=== PATIENT | male | born 1960 | race Caucasian/White ===

== ENCOUNTER → 2016-09-28 | Outpatient (REF) | payer MEDICAID, MEDICARE ==
[~2016-09-28] MED LIST: /FAMO2TA PO; /METO25TAB PO; /PANT40TA PO; ASPI81TAEC PO; BABY81CH OR; BREO1INH3 IN; CARB100C PO; CARB20TA PO; CELE20TA PO; CITA20TA2 PO; CLEO150C PO; CLEO300C2 PO; CLOP75TA2 PO; DEPA500T OR; DEPA500T2 OR; DEPAKOTE; DILA100C PO; HYDR50IN3 PO; HYDRO50TAB PO; IBUP80TA PO; KEPP1TAB2 PO; KEPP250T5 PO; LEVO50TA5 PO; LISI5TAB PO; LOPR1TAB6 PO; METF500T PO; MUPI2OI TOP; NEUR300C PO; PERC5TAB PO; PRAV40TA PO; PRAV40TA2 PO; PRIN10TA PO; PROA1AER IN; PROT1TAB2 PO; QUET30XR OR; QUET400T PO; QUET5TAB PO; SERO1TAB2 PO; SERO200T OR; SERO200T PO; SERO400T PO; SYMB80INH INH; SYNT50TA PO; TIOT18INH INH; TYLE325T5 PO; ZOCO40TA; ZOLO50TA PO; [UNRECOGNIZED DRUG - OTHER]
== END ==
LOC: M LABDRAWC 12:08
PROVIDERS: ATTEND Nurse Practitioner Psychiatric/Mental Health
DX: E55.9 Vitamin D deficiency, unspecified (principal)

== ENCOUNTER → 2016-10-17 | Outpatient (REF) | payer MEDICAID, MEDICARE ==
[~2016-10-17] MED LIST changes: +ASCO25TA PO; -BREO1INH3 IN; +BREO1INH3 INH; +CARB1TAB20 PO; +CYMB1CAP4 PO; +FAMO1TAB11 PO; +GABA-283 PO; +GABA600T PO; +INVE234I IM; +KEPP10002 PO; +LAMI25TA PO; +MELO15TA4 PO; +METF500T13 PO; +METO25TA4 PO; +PALI1TAB2 PO; -PROA1AER IN; +PROAAER10 IN; +QUET1TAB10 PO; +QUET1TAB8 PO; +SERT-138 PO; +SERT-155 PO; +ZONE1CAP PO
[2016-10-17 12:51] LABS: ALBUMIN/GLOBULIN RATIO 1.33 (1.00-1.93); ALKALINE PHOSPHATASE 91 U/L (45-117); ALT/SGPT 25 U/L (12-78); AST/SGOT 12 U/L (15-37); BILIRUBIN,DIRECT < 0.1 MG/DL (0.0-0.2); BILIRUBIN,TOTAL 0.2 MG/DL (0.2-1.0)
== END ==
LOC: M LABDRAWC 11:15
PROVIDERS: ATTEND Family Medicine
DX: R74.8 Abnormal levels of other serum enzymes (principal)

== ENCOUNTER 2017-01-21 10:15 | Inpatient (IN) | payer MEDICARE, OTHER ==
[~2017-01-21] VITALS: Ht 193 cm; Wt 101.0 kg
[~2017-01-21 10:15] MED LIST changes: -ASCO25TA PO; -CARB1TAB20 PO; -CYMB1CAP4 PO; -FAMO1TAB11 PO; -GABA-283 PO; -GABA600T PO; -INVE234I IM; -KEPP10002 PO; -LAMI25TA PO; -MELO15TA4 PO; -METF500T13 PO; -METO25TA4 PO; -PALI1TAB2 PO; -QUET1TAB10 PO; -QUET1TAB8 PO; -SERT-138 PO; -SERT-155 PO; -ZONE1CAP PO
[2017-01-21 11:00] LABS: MEAN CORPUSCULAR HEMOGLOBIN 33.1 pg (27.0-33.0); MEAN CORPUSCULAR HGB CONC 34.3 g/dl (32.0-36.5); MEAN CORPUSCULAR VOLUME 96.6 fl (80.0-96.0); RED CELL DISTRIBUTION WIDTH 12.1 % (11.5-14.5); WHITE BLOOD COUNT 7.2 K/mm3 (4.0-10.0)
[2017-01-21] MEDS ORDERED: MELO15TA4 PO (11:22)
[2017-01-21] MEDS ORDERED: QUET1TAB10 PO (11:22)
[2017-01-21] MEDS ORDERED: METF500T13 PO (11:22)
[2017-01-21] MEDS ORDERED: FAMO1TAB11 PO (11:22)
[2017-01-21] MEDS ORDERED: ASCO25TA PO (11:22)
[2017-01-21] MEDS ORDERED: SERT-155 PO (11:22)
[2017-01-21] MEDS ORDERED: QUET1TAB8 PO (11:22)
[2017-01-21] MEDS ORDERED: GABA-283 PO (11:22)
[2017-01-21] MEDS ORDERED: CARB20TA PO (11:22)
[2017-01-21 11:36] LABS: ALBUMIN 3.9 GM/DL (3.2-5.2); ALKALINE PHOSPHATASE 91 U/L (45-117); ALT/SGPT 19 U/L (12-78); ANION GAP 6 MEQ/L (8-16); AST/SGOT 10 U/L (15-37); BILIRUBIN,DIRECT 0.1 MG/DL (0.0-0.2); BILIRUBIN,TOTAL 0.3 MG/DL (0.2-1.0); BLOOD UREA NITROGEN 12 MG/DL (7-18); CALCIUM LEVEL 8.5 MG/DL (8.5-10.1); CARBON DIOXIDE LEVEL 28 MEQ/L (21-32); CHLORIDE LEVEL 106 MEQ/L (98-107); CREATININE FOR GFR 0.84 MG/DL (0.70-1.30); GLOMERULAR FILTRATION RATE > 60.0 (>56); GLUCOSE, FASTING 97 MG/DL (70-105); POTASSIUM SERUM 3.9 MEQ/L (3.5-5.1); SODIUM LEVEL 140 MEQ/L (136-145); TOTAL PROTEIN 6.9 GM/DL (6.4-8.2)
[2017-01-21 13:42] LABS: METHADONE URINE NEGATIVE (NEGATIVE)
[2017-01-21 15:42] VITALS: BP 161/77
[2017-01-21] MEDS ORDERED: SERT-138 PO (15:45)
[2017-01-21] MEDS ORDERED: GABA600T PO (15:45)
[2017-01-21] MEDS ORDERED: METO25TA4 PO (15:45)
[2017-01-21] MEDS ORDERED: KEPP10002 PO (15:45)
[2017-01-21] MEDS ORDERED: ACETAMINOPHEN TAB 650MG DOSE (2X325MG) PO PRN (17:15)
[2017-01-21] MEDS ORDERED: MOM 30ML SUSPENSION UDC PO PRN (17:15)
[2017-01-21] MEDS: NICOTINE 21MG/24HR 1 EA TRANSDERMAL TD SCH (17:48)
[2017-01-21] MEDS: metFORMIN (GLUCOPHAGE) 500 MG TAB PO SCH (18:15)
[2017-01-21] MEDS: QUEtiapine FUMARATE 100 MG TAB PO SCH (23:23)
[2017-01-21] MEDS: GABAPENTIN 300 MG CAP PO SCH (23:23)
[2017-01-21] MEDS: levETIRAcetam 250MG TABLET (KEPPRA) PO SCH (23:23)
[2017-01-21] MEDS: FAMOTIDINE 20 MG TAB PO SCH (23:23)
[2017-01-21] MEDS: METOPROLOL TART 25 MG TABLET PO SCH (23:24)
[2017-01-22] MEDS: LEVOTHYROXINE 50MCG TABLET (0.05MG) PO SCH (06:03)
[2017-01-22] MEDS ORDERED: IPRATROPIUM 0.5MG/ALBUTEROL 2.5MG INH SOL UD 3ML (DUONEB)(J7620) NEB SCH (08:00)
[2017-01-22] MEDS: QUEtiapine FUMARATE 100 MG TAB PO SCH ×3 (08:35→21:00)
[2017-01-22] MEDS: GABAPENTIN 300 MG CAP PO SCH ×3 (08:35→21:00)
[2017-01-22] MEDS: ASPIRIN 81 MG ENTERIC TAB PO SCH (08:35)
[2017-01-22] MEDS: NICOTINE 21MG/24HR 1 EA TRANSDERMAL TD SCH (08:35)
[2017-01-22] MEDS: carBAMazepine 100 MG *1/2* TAB PO SCH (08:35)
[2017-01-22] MEDS: PANTOPRAZOLE 40MG TAB (PROTONIX) PO SCH (08:35)
[2017-01-22] MEDS: metFORMIN (GLUCOPHAGE) 500 MG TAB PO SCH ×2 (08:36→17:02)
[2017-01-22] MEDS: LISINOPRIL 10 MG TAB PO SCH (08:36)
[2017-01-22] MEDS: levETIRAcetam 250MG TABLET (KEPPRA) PO SCH ×2 (08:36→21:00)
[2017-01-22] MEDS: METOPROLOL TART 25 MG TABLET PO SCH ×2 (08:36→21:00)
[2017-01-22] MEDS: MELOXICAM (MOBIC) 7.5 MG TAB PO SCH (08:37)
[2017-01-22] MEDS: PRAVASTATIN 20 MG TAB PO SCH (08:37)
[2017-01-22] MEDS: FAMOTIDINE 20 MG TAB PO SCH ×2 (08:37→21:00)
[2017-01-22] MEDS: ASCORBIC ACID 500 MG TAB PO SCH (08:37)
[2017-01-22] MEDS ORDERED: SERTRALINE 100 MG TAB PO SCH (09:00)
--- NOTE | 2017-01-22 09:21 | HPEPDOC ---
Medical History and Physical Date of Admission Jan 21, 2017 at 14:45 History and Physical PCP: [facility] ATTENDING: Dr. Jose Fernando HPI: 56yoM admitted to [facility] for schizoaffective disorder, being medically examined today. Patient states he has had chronic low back pain. He states he was referred for an MRI of his lumbosacral spine however he did not make it to the appointment. Also referred to pain management however had not been seen there yet. He states he has been on and off his medications for the past few weeks. Patient states he has had some cough productive of yellow sputum. Sometimes his chest feels tight. He has not been using his inhalers recently. Denies any fevers, chills, weakness, fatigue, CARR, CP, SOB, palpitations, abdominal pain, N/V/D or changes in bowel or bladder habits. PMHx: Schizophrenia/schizoaffective disorder History of psychosis Anxiety Depression COPD Hypertension NIDDM GERD Seizure disorder Hypothyroid Dyslipidemia Peripheral neuropathy History of unsteady gait. Uses a cane for ambulation. Chronic low back pain Chronic pain Vitamin D deficiency PSHX: Bilateral foot surgery SOCHX: Resides in: [facility], lives alone. Has a home health aide. 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 ROS: As noted in HPI, otherwise 11pt ROS of systems reviewed and unremarkable. PE: GEN: 56yoM, appears older than stated age. Well-nourished, well developed. No acute distress. Alert and oriented x 3. Agitated during exam. HEENT: Normocephalic, atraumatic. Pupils are equal, round, and reactive to light. Extraocular movements are intact. No nystagmus appreciated. Sclera are nonicteric. Conjunctiva without injection. Nose midline. Nasal turbinates without bogginess. EACs both patent BL. TMs both visualized and castro with good cone of light, no bulging or erythema. No facial asymmetry. Moist mucous membranes. Patient is edentulous. Pharynx pink and moist, no cobblestoning. Neck supple, trachea midline. No lymphadenopathy or thyromegaly appreciated. CHEST: Regular rate and rhythm, +S1, +S2 LUNGS: Decreased breath sounds bilaterally. Expiratory wheezes noted, no rales, or rhonchi. Patient is speaking in full sentences. No accessory muscle use. ABD: Round, soft, non-tender, non-distended. +Bowel sounds throughout. No rebound or guarding. No costovertebral angle tenderness. EXT: Pulses 2+ bilaterally dorsalis pedis and radial. No lower extremity edema appreciated. SKIN: [place], dry, warm. Capillary refill <2sec. No rashes. NEURO: Alert and oriented x 3. Cranial nerves III-XII are intact. No focal deficits appreciated. EKG: pending A&P: 56yoM admitted to [facility] for schizoaffective disorder 1. Psych. Plan per Psychiatry. Obtain baseline EKG to assure the safety of psychiatric medications as they can prolong the QT interval. 2. Nicotine dependence. Patch available. 3. COPD. Resume patient's outpatient inhaler regimen. Duo nebs as needed. Reinforced compliance with medications. Update CBC/CMP. Check PA and left lateral chest x-ray. Oxygen saturation is noted to be 94% on room air. 4. Follow up with PCP on discharge. Request copy of most recent note from last appointment with PCP. 5. NIDDM. Continue consistent carbohydrate diet. Metformin 500 mg by mouth twice a day. Fingerstick blood sugar twice a day. Update hemoglobin A1c. Continue aspirin 81 mg daily. 6. Dyslipidemia. Continue statin. Update fasting lipids. 7. Vitamin D deficiency. Update vitamin D level. 8. GERD. Continue Protonix 40 mg daily. Continue Pepcid 20 mg by mouth twice a day. 9. Hypertension. Continue lisinopril 10 mg daily. Continue metoprolol 25 mg by mouth twice a day with hold parameters. 10. Seizure disorder. Continue Keppra 1000 mg by mouth twice a day, Tegretol 300 mg by mouth daily. Update Tegretol level. 11. Hypothyroidism. Continue Synthroid 50 g daily. TSH is noted within normal limits. 12. Chronic low back pain/peripheral neuropathy/chronic pain. Request x-ray of lumbosacral spine. Request pain management consultation. Continue gabapentin 600 mg 3 times a day, meloxicam 15 mg by mouth daily. 13. Unsteady gait. PT evaluation and treat. Pt uses cane for ambulation. 14. Staff member Valdemar present throughout exam. Vital Signs Vital Signs Date Time Temp Pulse Resp B/P (MAP) Pulse Ox O2 Delivery O2 Flow Rate FiO2 01/22/17 08:36 89 141/70 01/21/17 15:42 98.3 18 94 Room Air Laboratory Data Labs 24H Laboratory Tests 2 01/21/17 10:49: Anion Gap 6L, Glomerular Filtration Rate > 60.0, Calcium Level 8.5, Aspartate Amino Transf (AST/SGOT) 10L, Alanine Aminotransferase (ALT/SGPT) 19, Alkaline Phosphatase 91, Total Bilirubin 0.3, Direct Bilirubin 0.1, Total Protein 6.9, Albumin 3.9, Albumin/Globulin Ratio 1.30, Thyroid Stimulating Hormone (TSH) 0.584, Salicylates Level 4.4L, Acetaminophen Level < 2.0L, Ethyl Alcohol Level < 0.003 01/21/17 12:15: Urine Amphetamines Screen NEGATIVE, Urine Benzodiazepines Screen NEGATIVE, Urine Opiates Screen NEGATIVE, Urine Methadone Screen NEGATIVE, Urine Barbiturates Screen NEGATIVE, Urine Phencyclidine Screen NEGATIVE, Urine Cocaine Metabolite Screen NEGATIVE, Urine Cannabinoids Screen NEGATIVE 01/21/17 18:14: Bedside Glucose (Misc Panel) 119H CBC/BMP Laboratory Tests 01/21/17 10:49 Red Blood Count 4.48, Mean Corpuscular Volume 96.6 H, Mean Corpuscular Hemoglobin 33.1 H, Mean Corpuscular Hemoglobin Concent 34.3, Red Cell Distribution Width 12.1 Home Medications Scheduled Ascorbic Acid (Vitamin C) 250 Mg Tab, 1,000 MG PO DAILY Aspirin (Aspirin EC) 81 Mg Tabec, 81 MG PO DAILY for Cardiac prevention Carbamazepine (TEGretol) 200 Mg Tab, 300 MG PO DAILY Famotidine (Famotidine) 20 Mg Tab, 20 MG PO BID Fluticasone/Vilanterol (Breo Ellipta 200-25 Mcg/INH) 1 Inh Inh, 1 INH INH DAILY for Gabapentin (Gabapentin) 600 Mg Tab, 600 MG PO TID Levetiracetam (Keppra) 1,000 Mg Tab, 1,000 MG PO BID Levothyroxine Sodium (Synthroid) 50 Mcg Tab, 50 MCG PO DAILY for hypothyroid Lisinopril (Prinivil) 10 Mg Tab, 10 MG PO DAILY for Hypertention Meloxicam (Meloxicam) 15 Mg Tab, 15 MG PO DAILY Metformin Hydrochloride (Metformin HCl) 500 Mg Tab, 500 MG PO BID Metoprolol Tartrate (Metoprolol Tartrate) 25 Mg Tab, 25 MG PO BID Pantoprazole Sodium Sesquihydr (Protonix) 40 Mg Tab, 40 MG PO DAILY for GERD Pravastatin Sodium (Pravachol) 40 Mg Tab, 40 MG PO DAILY for hyperlipidemia Quetiapine Fumerate (Quetiapine Fumarate) 300 Mg Tab, 300 MG PO QHS Quetiapine Fumerate (Quetiapine Fumarate) 100 Mg Tab, 100 MG PO BID Sertraline HCl (Sertraline HCl) 100 Mg Tab, 200 MG PO DAILY Tiotropium Simms Monohydrate (Spiriva Handihaler) 5 Inhalation/Inhaler Powd, 1 INHALATION INH DAILY for Scheduled PRN Albuterol Sulfate (Proair Hfa) 108 Mcg/Act Aer, 108 MCG IN Q4HP PRN for SHORTNESS OF BREATH Allergies Coded Allergies: Penicillins (Verified Allergy, Mild, 08/12/12) Madeline Miller Jan 22, 2017 09:21
[2017-01-22] MEDS ORDERED: IPRATROPIUM 0.5MG/ALBUTEROL 2.5MG INH SOL UD 3ML (DUONEB)(J7620) NEB PRN (09:30)
[2017-01-22] MEDS ORDERED: ALBUTEROL SULFATE 2.5 MG/0.5 ML INH NEB SOLN INH PRN (09:30)
[2017-01-22] MEDS: lamoTRIgine 25 MG TAB PO SCH (10:37)
[2017-01-22] MEDS: DULoxetine 20 MG CAP (CYMBALTA) PO SCH (10:37)
[2017-01-22] MEDS: PALIPERIDONE 6 MG ER TAB (INVEGA) PO SCH (10:37)
[2017-01-22] MEDS: ADVAIR HFA 230/21MCG INHALER INH SCH ×2 (10:53→21:00)
[2017-01-22] MEDS: TIOTROPIUM INHALER/CAPSULE (SPIRIVA) INH SCH (10:55)
[2017-01-22] MEDS: ALBUTEROL SULFATE 2.5 MG/0.5 ML INH NEB SOLN INH SCH ×3 (10:59→20:00)
[2017-01-22 11:18] LABS: BASO % 0.5 % (0.0-1.0); EOS # 0.4 K/mm3 (0.0-0.50); EOS % 4.2 % (0.0-3.0); LARGE UNSTAINED CELL # 0.1 K/mm3 (0.0-0.4); LARGE UNSTAINED CELL % 1.2 % (0.0-4.0); LYMPH # 1.6 K/mm3 (1.5-4.5); LYMPH % 17.6 % (24.0-44.0); MEAN CORPUSCULAR HEMOGLOBIN 31.8 pg (27.0-33.0); MEAN CORPUSCULAR HGB CONC 32.9 g/dl (32.0-36.5); MEAN CORPUSCULAR VOLUME 96.8 fl (80.0-96.0); MONO # 0.6 K/mm3 (0.0-0.8); MONO % 6.7 % (0.0-5.0); NEUTROPHILS # 5.9 K/mm3 (1.8-7.7); NEUTROPHILS % 69.8 % (36.0-66.0); PLATELET COUNT, AUTOMATED 253 k/mm3 (150-450); RED CELL DISTRIBUTION WIDTH 12.2 % (11.5-14.5); WHITE BLOOD COUNT 8.4 K/mm3 (4.0-10.0)
[2017-01-22 11:57] LABS: ALBUMIN 3.5 GM/DL (3.2-5.2); ALKALINE PHOSPHATASE 82 U/L (45-117); ALT/SGPT 19 U/L (12-78); ANION GAP 6 MEQ/L (8-16); AST/SGOT 9 U/L (15-37); BILIRUBIN,TOTAL 0.3 MG/DL (0.2-1.0); BLOOD UREA NITROGEN 14 MG/DL (7-18); CARBAMAZEPINE (TEGRETOL) LEVEL 2.9 UG/ML (4.0-10.0); CARBON DIOXIDE LEVEL 30 MEQ/L (21-32); CHLORIDE LEVEL 109 MEQ/L (98-107); CREATININE FOR GFR 0.86 MG/DL (0.70-1.30); GLOMERULAR FILTRATION RATE > 60.0 (>56); GLUCOSE, FASTING 123 MG/DL (70-105); POTASSIUM SERUM 4.1 MEQ/L (3.5-5.1); SODIUM LEVEL 145 MEQ/L (136-145)
--- NOTE | 2017-01-22 16:46 | REP ---
Lumbar spine series: Two views: History: Low back pain. Findings: AP and lateral views are presented as requested. Vascular calcification is seen in a normal caliber aorta. Lumbar vertebral body heights are preserved. There is mild disc space narrowing at L3-4 and L4-5. Early discogenic spurring is seen at these two levels as well as at T12-L1 and L1-2. Pedicles and posterior elements are intact. There is no evidence of spondylolysis or spondylolisthesis. Sacrum and SI joints are intact. Impression: Mild degenerative disc disease at several levels. Vascular calcification. Otherwise negative limited lumbar spine series. Signed by Shakir Lassiter MD 01/22/2017 05:25 P
--- NOTE | 2017-01-22 16:47 | REP ---
Chest x-ray: Two views: History: Cough. Comparison chest x-ray: 08/09/2014. Findings: The lungs are symmetrically aerated. There is some mild linear fibrosis in the left base. Lung yip are otherwise clear. Pleural angles are sharp. Cardiomediastinal silhouette is unremarkable. Pulmonary vasculature is not increased. No significant bony abnormality is seen. Impression: Linear fibrosis left base. Otherwise no acute disease. Signed by Shakir Lassiter MD 01/22/2017 05:25 P
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
[2017-01-22 18:00] VITALS: BP 110/75
[2017-01-23] MEDS: LEVOTHYROXINE 50MCG TABLET (0.05MG) PO SCH (06:04)
[2017-01-23 06:48] VITALS: BP 137/76
[2017-01-23] MEDS: ALBUTEROL SULFATE 2.5 MG/0.5 ML INH NEB SOLN INH SCH ×4 (07:31→18:57)
[2017-01-23] MEDS: VITAMIN D 1,000 INTERNATIONAL UNITS TABLET PO SCH (09:38)
[2017-01-23] MEDS: LISINOPRIL 10 MG TAB PO SCH (09:39)
[2017-01-23] MEDS: PRAVASTATIN 20 MG TAB PO SCH (09:39)
[2017-01-23] MEDS: PALIPERIDONE 6 MG ER TAB (INVEGA) PO SCH (09:39)
[2017-01-23] MEDS: FAMOTIDINE 20 MG TAB PO SCH ×2 (09:39→21:19)
[2017-01-23] MEDS: GABAPENTIN 300 MG CAP PO SCH ×3 (09:39→21:19)
[2017-01-23] MEDS: ASPIRIN 81 MG ENTERIC TAB PO SCH (09:39)
[2017-01-23] MEDS: NICOTINE 21MG/24HR 1 EA TRANSDERMAL TD SCH (09:40)
[2017-01-23] MEDS: PANTOPRAZOLE 40MG TAB (PROTONIX) PO SCH (09:40)
[2017-01-23] MEDS: QUEtiapine FUMARATE 100 MG TAB PO SCH ×3 (09:40→21:19)
[2017-01-23] MEDS: MELOXICAM (MOBIC) 7.5 MG TAB PO SCH (09:40)
[2017-01-23] MEDS: carBAMazepine 100 MG *1/2* TAB PO SCH (09:40)
[2017-01-23] MEDS: levETIRAcetam 250MG TABLET (KEPPRA) PO SCH ×2 (09:41→21:18)
[2017-01-23] MEDS: metFORMIN (GLUCOPHAGE) 500 MG TAB PO SCH ×2 (09:41→17:20)
[2017-01-23] MEDS: DULoxetine 20 MG CAP (CYMBALTA) PO SCH (09:41)
[2017-01-23] MEDS: METOPROLOL TART 25 MG TABLET PO SCH ×2 (09:41→21:19)
[2017-01-23] MEDS: lamoTRIgine 25 MG TAB PO SCH (09:41)
[2017-01-23] MEDS: ASCORBIC ACID 500 MG TAB PO SCH (09:42)
[2017-01-23] MEDS: ADVAIR HFA 230/21MCG INHALER INH SCH ×2 (09:42→21:20)
[2017-01-23] MEDS: TIOTROPIUM INHALER/CAPSULE (SPIRIVA) INH SCH (09:42)
--- NOTE | 2017-01-23 15:05 | MHIPNPDOC ---
[facility] Progress Note Progress Note DATE OF SERVICE: 01/23/17 HISTORY: Patient stormed into the office and stated "Oh, got a whole crowd today." Extremely hostile and paranoid, accusing staff of being disrespectful of him and denying him pain medication. Discussed removing the 1:1 sitter with the patient due to his lack of suicidal actions and he became very agitated. Patient threatened "Oh yeah? Well just watch, I'll kill myself if you take off the sitter, I'll never leave that room again". Patient refused to disclose any plan. VITAL SIGNS: See below. NEW TEST RESULTS: as below, no pertinent findings. CURRENT MEDICATIONS: See below. MENTAL STATUS EXAMINATION: Patient is a 56-year old male, who is disheveled; he is hostile and makes intense eye contact Speech: Is fluent; loud, angry tone Thought processes including: perseverative; paranoid Thought content: +SI, refuses to disclose plan; paranoia regarding staff judgement of him Description of abnormal or psychotic thoughts: unable to assess for AVH, patient uncooperative Judgment: poor Insight: limited/poor Orientation: x3 Recent and remote memory: intact Attention span and concentration: intact Mood: observed angry. Affect: hostile affect; restricted range DIAGNOSES: Schizoaffective Disorder, depressed type Borderline Personality Disorder ASSESSMENT: Patient is testing limits and trying to establish his power in the setting of the patient-doctor relationship. He is known to be homeless and there is a question regarding the veracity of his claims as the admitting circumstances for this admission are near identical to his admission from last year. Patient continues to extol the virtues of his outpatient providers and demands that inpatient staff acquiesce to all his wants. He is refusing to engage in groups and had declined several medications, although patient insists he was never told that medications were available to him. Patient is highly paranoid and erratic, would likely be a danger to himself or others if not closely supervised. MANAGEMENT PLAN: continue 1:1 sitter; encourage patient to take oral medications ; encourage patient to attend groups as able TIME SPENT: 15 minutes. Vital Signs Vital Signs Date Time Temp Pulse Resp B/P (MAP) Pulse Ox O2 Delivery O2 Flow Rate FiO2 01/23/17 12:54 Room Air 01/23/17 09:41 75 137/76 01/23/17 06:48 97.5 16 01/21/17 15:42 94 Laboratory Data 24H Labs Laboratory Tests 2 01/22/17 15:50: Bedside Glucose (Misc Panel) 105 01/23/17 06:06: Bedside Glucose (Misc Panel) 131H 01/23/17 07:37: Triglycerides Level 205H, LDL Cholesterol 89.0, Total Cholesterol 167, Non-HDL Cholesterol (LDL + VLDL) 130, Total HDL Cholesterol 37L, Cholesterol/HDL Ratio 4.513 Current Medications Current Medications Acetaminophen (Tylenol Tab) 650 mg Q6HP PRN PO HEADACHE or DISCOMFORT; Start at 17:15; Stop 02/20/17 at 17:14 Albuterol Sulfate (Proventil Neb) 2.5 mg Q2HP PRN INH SOB/WHEEZING; Start 01/22 at 09:30; Stop 02/21/17 at 09:29 Albuterol Sulfate (Proventil Neb) 2.5 mg RQID INH Last administered on 14:52; Start 01/22/17 at 12:00; Stop 02/21/17 at 11:59 Albuterol/ Ipratropium (Duoneb (Ipr 0.5mg/Alb 2.5mg)) 3 ml Q2HP PRN NEB SOB/ WHEEZING; Start 01/22/17 at 09:30; Stop 01/22/17 at 09:33; Status DC Albuterol/ Ipratropium (Duoneb (Ipr 0.5mg/Alb 2.5mg)) 3 ml RQID NEB ; Start 04/28 at 08:00; Stop 01/22/17 at 09:33; Status DC Ascorbic Acid (Vitamin C) 1,000 mg DAILY PO Last administered on 01/23/17 09: 42; Start 01/22/17 at 09:00; Stop 02/21/17 at 08:59 Aspirin (Ecotrin) 81 mg QAM PO Last administered on 01/23/17 09:39; Start 04/28 at 09:00; Stop 02/21/17 at 08:59 Carbamazepine (TEGretol) 300 mg DAILY PO Last administered on 01/23/17 09:40; Start 01/22/17 at 09:00; Stop 02/21/17 at 08:59 Duloxetine HCl (Cymbalta) 80 mg DAILY PO Last administered on 01/23/17 09:41; Start 01/22/17 at 09:00; Stop 02/21/17 at 08:59 Famotidine (Pepcid) 20 mg BID PO Last administered on 01/23/17 09:39; Start at 21:00; Stop 02/20/17 at 20:59 Gabapentin (Neurontin) 600 mg TID PO Last administered on 01/23/17 09:39; Start 01/21/17 at 21:00; Stop 02/20/17 at 20:59 Home Med (Med Rec Complete!) ASDIRECTED XX ; Start 01/21/17 at 16:00; Stop 03/29 at 16:00; Status DC Lamotrigine (LaMICtal) 50 mg QAM PO Last administered on 01/23/17 09:41; Start 01/22/17 at 09:00; Stop 02/21/17 at 08:59 Levetiracetam (Keppra) 1,000 mg BID PO Last administered on 01/23/17 09:41; Start 01/21/17 at 21:00; Stop 02/20/17 at 20:59 Levothyroxine Sodium (Synthroid) 50 mcg DAILY@06 PO Last administered on 06:04; Start 01/22/17 at 06:00; Stop 02/21/17 at 05:59 Lisinopril (Prinivil) 10 mg DAILY PO Last administered on 01/23/17 09:39; Start 01/22/17 at 09:00; Stop 02/21/17 at 08:59 Magnesium Hydroxide (Milk Of Magnesia) 30 ml DAILYPRN PRN PO CONSTIPATION; Start 01/21/17 at 17:15; Stop 02/20/17 at 17:14 Meloxicam (Mobic) 15 mg DAILY PO Last administered on 01/23/17 09:40; Start at 09:00; Stop 02/21/17 at 08:59 Metformin HCl (Glucophage) 500 mg BID@08,18 PO Last administered on 01/23/17 09:41; Start 01/21/17 at 18:00; Stop 02/20/17 at 17:59 Metoprolol Tartrate (Lopressor) 25 mg BID PO Last administered on 01/23/17 09: 41; Start 01/21/17 at 21:00; Stop 02/20/17 at 20:59 Nicotine (Nicoderm Cq 21mg) 1 patch DAILY TD Last administered on 01/23/17 09: 40; Start 01/21/17 at 09:00; Stop 02/20/17 at 08:59 Paliperidone (Invega) 3 mg QHS PO ; Start 01/23/17 at 21:00; Stop 02/22/17 at 20:59 Paliperidone (Invega) 6 mg DAILY PO Last administered on 01/23/17 09:39; Start 01/22/17 at 09:00; Stop 02/21/17 at 08:59 Pantoprazole Sodium (Protonix) 40 mg DAILY PO Last administered on 01/23/17 09 :40; Start 01/22/17 at 09:00; Stop 02/21/17 at 08:59 Pravastatin Sodium (Pravachol) 40 mg QAM PO Last administered on 01/23/17 09: 39; Start 01/22/17 at 09:00; Stop 02/21/17 at 08:59 Quetiapine Fumarate (SEROquel) 100 mg BID@0900,1600 PO Last administered on 09:40; Start 01/22/17 at 09:00; Stop 02/21/17 at 08:59 Quetiapine Fumarate (SEROquel) 300 mg QHS PO Last administered on 01/21/17 23: 23; Start 01/21/17 at 21:00; Stop 02/20/17 at 20:59 Salmeterol Xinafoate/ Fluticasone (Advair Hfa 230/ 21) 2 puff BID INH Last administered on 01/23/17 09:42; Start 01/22/17 at 09:00; Stop 02/21/17 at 08: 59 Sertraline HCl (Zoloft) 200 mg DAILY PO Last administered on 01/22/17 08:35; Start 01/22/17 at 09:00; Stop 01/22/17 at 10:16; Status DC Tiotropium [place] (Spiriva Handihaler) 1 inhalation DAILY@0800 INH Last administered on 01/23/17 09:42; Start 01/22/17 at 08:00; Stop 02/21/17 at 07: 59 Vitamin D (Vitamin D) 2,000 units DAILY PO Last administered on 01/23/17 09:38 ; Start 01/23/17 at 09:00; Stop 02/22/17 at 08:59 Allergies Coded Allergies: Penicillins (Verified Allergy, Mild, 08/12/12) MATA MIGUEL MD Jan 23, 2017 15:05
[2017-01-23 18:00] VITALS: BP 128/69
[2017-01-23] MEDS: PALIPERIDONE 3 MG ER TAB (INVEGA) PO SCH (21:19)
[2017-01-24] MEDS: LEVOTHYROXINE 50MCG TABLET (0.05MG) PO SCH (06:16)
[2017-01-24 06:30] VITALS: BP 119/72
[2017-01-24] MEDS: ALBUTEROL SULFATE 2.5 MG/0.5 ML INH NEB SOLN INH SCH ×4 (07:56→20:00)
[2017-01-24] MEDS: PALIPERIDONE 6 MG ER TAB (INVEGA) PO SCH (08:56)
[2017-01-24] MEDS: levETIRAcetam 250MG TABLET (KEPPRA) PO SCH ×2 (08:56→20:58)
[2017-01-24] MEDS: NICOTINE 21MG/24HR 1 EA TRANSDERMAL TD SCH (08:56)
[2017-01-24] MEDS: TIOTROPIUM INHALER/CAPSULE (SPIRIVA) INH SCH (08:57)
[2017-01-24] MEDS: VITAMIN D 1,000 INTERNATIONAL UNITS TABLET PO SCH (08:57)
[2017-01-24] MEDS: PRAVASTATIN 20 MG TAB PO SCH (08:57)
[2017-01-24] MEDS: ADVAIR HFA 230/21MCG INHALER INH SCH ×2 (08:57→20:59)
[2017-01-24] MEDS: carBAMazepine 100 MG *1/2* TAB PO SCH (08:58)
[2017-01-24] MEDS: ASPIRIN 81 MG ENTERIC TAB PO SCH (08:59)
[2017-01-24] MEDS: GABAPENTIN 300 MG CAP PO SCH ×3 (08:59→20:58)
[2017-01-24] MEDS: lamoTRIgine 25 MG TAB PO SCH (08:59)
[2017-01-24] MEDS: LISINOPRIL 10 MG TAB PO SCH (08:59)
[2017-01-24] MEDS: metFORMIN (GLUCOPHAGE) 500 MG TAB PO SCH ×2 (08:59→17:08)
[2017-01-24] MEDS: METOPROLOL TART 25 MG TABLET PO SCH ×2 (09:00→20:58)
[2017-01-24] MEDS: MELOXICAM (MOBIC) 7.5 MG TAB PO SCH (09:00)
[2017-01-24] MEDS ORDERED: QUEtiapine FUMARATE 100 MG TAB PO SCH (09:00)
[2017-01-24] MEDS: FAMOTIDINE 20 MG TAB PO SCH ×2 (09:00→20:58)
[2017-01-24] MEDS: DULoxetine 20 MG CAP (CYMBALTA) PO SCH ×2 (09:00→20:58)
[2017-01-24] MEDS: PANTOPRAZOLE 40MG TAB (PROTONIX) PO SCH (09:00)
[2017-01-24] MEDS: ASCORBIC ACID 500 MG TAB PO SCH (09:00)
--- NOTE | 2017-01-24 16:52 | CR ---
DATE OF CONSULTATION: 01/24/2017 CONSULTATION REPORT FOR: ROBBIE Draper CHIEF COMPLAINT: Low back pain, bilateral leg pain/paresthesias. HISTORY OF PRESENT ILLNESS: John Paul is a 56-year-old gentleman with a longstanding history of low back pain and bilateral leg pain. States in the early that he jumped off of a building in a suicide attempt and pain began at that point. Also, he suffers from neuropathy in the lower extremities. History of heavy alcohol use up until four years ago per patient. States he has been following with [facility] primary care who had ordered an MRI for him this past Saturday and he was not able to come due to his admission at [facility]. States also that he has a followup appointment with them and states that they have referred him to a pain management center in [facility]. He does report that he is homeless at this point in time. Rating pain level as an 8/10. Describes constant aching and painful lower extremities. Reports trialed on high doses of gabapentin without effectiveness. Denies bowel or bladder incontinence. States his pain has increased over the past couple of months. PAST MEDICAL HISTORY: 1. Schizophrenia/schizoaffective disorder. 2. History of psychosis. 3. Anxiety. 4. Depression. 5. Chronic obstructive pulmonary disease (COPD). 6. Hypertension. 7. Non-insulin dependent diabetes mellitus. 8. Gastroesophageal reflux disease (GERD). 9. Seizure disorder. 10. Hypothyroid. 11. Dyslipidemia. 12. Peripheral neuropathy. 13. Chronic low back pain. 14. Vitamin D deficiency. PAST SURGICAL HISTORY: Bilateral foot surgery. SOCIAL HISTORY: The patient states he is homeless. He lives alone in the [place] area. He is single. 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 Denies recent alcohol use. History of alcohol abuse and the patient reports last drink was four years ago. Denies illicit drug use. Smokes 2-3 packs of cigarettes per day. FAMILY HISTORY: Both his parents are . Mother with a history of lung cancer and history of tobacco use. Father with a history of coronary artery disease. REVIEW OF SYSTEMS: CARDIOVASCULAR: Denies chest pains or shortness of breath. RESPIRATORY: Denies recent cough. Positive for chronic obstructive pulmonary disease (COPD). GASTROINTESTINAL (GI): Reporting normal bowel movements. Denies abdominal pain. GENITOURINARY (): Reporting normal urination. Denies urinary incontinence. NEUROLOGIC: Denies headache. No recent seizures. Seizure disorder history. Remaining 11-point review of systems is negative except for what was mentioned in the history of present illness (HPI). PHYSICAL EXAMINATION: Awake, alert, cooperative. VITAL SIGNS: Temperature 97.7, pulse 75, respiratory rate 20, blood pressure 119/72. CARDIAC: S1, S2 normal rate and rhythm. RESPIRATORY: Lung sounds clear. Respirations nonlabored. NEUROMUSCULAR: Muscle strength over the lower extremities is weak at 2/5 bilaterally. Reporting normal sensation to light touch, lower extremities. INSPECTION OF SPINE: Tenderness over the lumbosacral (LS) axis. Tenderness lumbar paraspinal, right greater than left. Range of motion of the spine produces increased in pain. DIAGNOSTIC DATA: Lumbar spine x-ray 01/22/2017: Mild degenerative disc disease at several levels. Lumbar vertebral body heights are preserved. ASSESSMENT: 1. Chronic low back pain. 2. Lumbar degenerative disc disease. 3. Neuropathy, lower extremities. PLAN: The patient appears to be motivated to continue with efforts that primary care has put in place to get an MRI of the lumbar spine upon discharge and see a local pain physician in [facility]. I do feel that Cymbalta 40 mg at bedtime is a great choice for both his chronic joint pain and his neuropathy. You may want to consider increasing that to 60-90 mg daily. Continue meloxicam 15 mg daily. Consider giving him routine dosage of Tylenol 500 mg two tablets twice a day to three times a day. Would recommend rehabilitation services/physical therapy (PT) for lower extremity weakness and deconditioning. Thank you for allowing us to participate in the care of your patient, John Paul Duran. Should you have any questions or concerns, please do not hesitate to contact me.
[2017-01-24] MEDS: QUEtiapine FUMARATE 50 MG TAB PO SCH ×2 (17:07→20:58)
--- NOTE | 2017-01-24 17:32 | MHIPNPDOC ---
[facility] Progress Note Progress Note DATE OF SERVICE: 01/24/17 HISTORY: Continues to feel suicidal, reports that it is due to pain primarily. Expresses frustration that pain management has not come to see him yet, also frustrated that the neurologist who saw him yesterday did nothing to alleviate his pain. Patient continues to express that "I haven't felt this way in a long time", states the last time he felt this suicidal was "mid-80s" when he had his first suicide attempt (the event when he jumped from a building), reported a long history of attempts via overdose. Patient notes that he has been attending groups and has taken his medications as asked. VITAL SIGNS: See below. NEW TEST RESULTS: no new labs/imaging. CURRENT MEDICATIONS: See below. MENTAL STATUS EXAMINATION: Patient is a 56-year old male, who is slightly disheveled, dressed in [facility]; he makes intermittent eye contact; he is cooperative with the interview Speech: Is fluent; normal rate, tone, and volume Thought processes including: concrete, coherent Thought content: +SI, does not divulge plan; focused on his pain Description of abnormal or psychotic thoughts: denies AVH, does not appear internally preoccupied; no paranoid or delusional thoughts elicited Judgment: fair Insight: fair Orientation: x3 Recent and remote memory: intact Attention span and concentration: intact Mood: "I haven't felt this bad in a long time". Affect: dysphoric/pained; restricted expression; congruent to stated mood and thought content DIAGNOSES: Schizoaffective Disorder Borderline Personality Disorder ASSESSMENT: Patient is improving now that he is taking his medications, he appears less hostile and more willing to participate in treatment. He remains focused on his pain as his primary stressor abut continues to demonstrate limited insight as he perceives that staff is judgemental of him and at times mocking. He remains paranoid but was able to attend several groups with no outbursts. Patient continues to report mood instability and suicidal thoughts at this time. MANAGEMENT PLAN: continue current medications; will adjust Seroquel to divide doses over 3/day as patient was previously taking in this manner TIME SPENT: 15 minutes. Vital Signs Vital Signs Date Time Temp Pulse Resp B/P (MAP) Pulse Ox O2 Delivery O2 Flow Rate FiO2 01/24/17 09:00 65 119/72 01/24/17 06:30 97.7 20 01/23/17 12:54 Room Air 01/21/17 15:42 94 Laboratory Data 24H Labs Laboratory Tests 2 01/24/17 06:18: Bedside Glucose (Misc Panel) 122H Current Medications Current Medications Acetaminophen (Tylenol Tab) 650 mg Q6HP PRN PO HEADACHE or DISCOMFORT; Start at 17:15; Stop 02/20/17 at 17:14 Albuterol Sulfate (Proventil Neb) 2.5 mg Q2HP PRN INH SOB/WHEEZING; Start 01/22 at 09:30; Stop 02/21/17 at 09:29 Albuterol Sulfate (Proventil Neb) 2.5 mg RQID INH Last administered on 14:52; Start 01/22/17 at 12:00; Stop 02/21/17 at 11:59 Albuterol/ Ipratropium (Duoneb (Ipr 0.5mg/Alb 2.5mg)) 3 ml Q2HP PRN NEB SOB/ WHEEZING; Start 01/22/17 at 09:30; Stop 01/22/17 at 09:33; Status DC Albuterol/ Ipratropium (Duoneb (Ipr 0.5mg/Alb 2.5mg)) 3 ml RQID NEB ; Start 04/28 at 08:00; Stop 01/22/17 at 09:33; Status DC Ascorbic Acid (Vitamin C) 1,000 mg DAILY PO Last administered on 01/24/17 09: 00; Start 01/22/17 at 09:00; Stop 02/21/17 at 08:59 Aspirin (Ecotrin) 81 mg QAM PO Last administered on 01/24/17 08:59; Start 04/28 at 09:00; Stop 02/21/17 at 08:59 Carbamazepine (TEGretol) 300 mg DAILY PO Last administered on 01/24/17 08:58; Start 01/22/17 at 09:00; Stop 02/21/17 at 08:59 Duloxetine HCl (Cymbalta) 40 mg QHS PO ; Start 01/24/17 at 21:00; Stop at 20:59 Duloxetine HCl (Cymbalta) 80 mg DAILY PO Last administered on 01/24/17 09:00; Start 01/22/17 at 09:00; Stop 02/21/17 at 08:59 Famotidine (Pepcid) 20 mg BID PO Last administered on 01/24/17 09:00; Start at 21:00; Stop 02/20/17 at 20:59 Gabapentin (Neurontin) 600 mg TID PO Last administered on 01/24/17 17:07; Start 01/21/17 at 21:00; Stop 02/20/17 at 20:59 Home Med (Med Rec Complete!) ASDIRECTED XX ; Start 01/21/17 at 16:00; Stop 03/29 at 16:00; Status DC Lamotrigine (LaMICtal) 50 mg QAM PO Last administered on 01/24/17 08:59; Start 01/22/17 at 09:00; Stop 02/21/17 at 08:59 Levetiracetam (Keppra) 1,000 mg BID PO Last administered on 01/24/17 08:56; Start 01/21/17 at 21:00; Stop 02/20/17 at 20:59 Levothyroxine Sodium (Synthroid) 50 mcg DAILY@06 PO Last administered on 06:16; Start 01/22/17 at 06:00; Stop 02/21/17 at 05:59 Lisinopril (Prinivil) 10 mg DAILY PO Last administered on 01/24/17 08:59; Start 01/22/17 at 09:00; Stop 02/21/17 at 08:59 Magnesium Hydroxide (Milk Of Magnesia) 30 ml DAILYPRN PRN PO CONSTIPATION; Start 01/21/17 at 17:15; Stop 02/20/17 at 17:14 Meloxicam (Mobic) 15 mg DAILY PO Last administered on 01/24/17 09:00; Start at 09:00; Stop 02/21/17 at 08:59 Metformin HCl (Glucophage) 500 mg BID@08,18 PO Last administered on 01/24/17 17:08; Start 01/21/17 at 18:00; Stop 02/20/17 at 17:59 Metoprolol Tartrate (Lopressor) 25 mg BID PO Last administered on 01/24/17 09: 00; Start 01/21/17 at 21:00; Stop 02/20/17 at 20:59 Nicotine (Nicoderm Cq 21mg) 1 patch DAILY TD Last administered on 01/24/17 08: 56; Start 01/21/17 at 09:00; Stop 02/20/17 at 08:59 Paliperidone (Invega) 3 mg QHS PO Last administered on 01/23/17 21:19; Start 01/23/17 at 21:00; Stop 02/22/17 at 20:59 Paliperidone (Invega) 6 mg DAILY PO Last administered on 01/24/17 08:56; Start 01/22/17 at 09:00; Stop 02/21/17 at 08:59 Pantoprazole Sodium (Protonix) 40 mg DAILY PO Last administered on 01/24/17 09 :00; Start 01/22/17 at 09:00; Stop 02/21/17 at 08:59 Pravastatin Sodium (Pravachol) 40 mg QAM PO Last administered on 01/24/17 08: 57; Start 01/22/17 at 09:00; Stop 02/21/17 at 08:59 Quetiapine Fumarate (SEROquel) 100 mg BID@0900,1200 PO Last administered on 08:59; Start 01/24/17 at 09:00; Stop 01/24/17 at 12:04; Status DC Quetiapine Fumarate (SEROquel) 100 mg BID@0900,1600 PO Last administered on 17:20; Start 01/22/17 at 09:00; Stop 01/23/17 at 17:35; Status DC Quetiapine Fumarate (SEROquel) 150 mg TID PO Last administered on 01/24/17 17: 07; Start 01/24/17 at 16:00; Stop 02/23/17 at 15:59 Quetiapine Fumarate (SEROquel) 300 mg QHS PO Last administered on 01/23/17 21: 19; Start 01/21/17 at 21:00; Stop 01/24/17 at 12:04; Status DC Salmeterol Xinafoate/ Fluticasone (Advair Hfa 230/ 21) 2 puff BID INH Last administered on 01/24/17 08:57; Start 01/22/17 at 09:00; Stop 02/21/17 at 08: 59 Sertraline HCl (Zoloft) 200 mg DAILY PO Last administered on 01/22/17 08:35; Start 01/22/17 at 09:00; Stop 01/22/17 at 10:16; Status DC Tiotropium [place] (Spiriva Handihaler) 1 inhalation DAILY@0800 INH Last administered on 01/24/17 08:57; Start 01/22/17 at 08:00; Stop 02/21/17 at 07: 59 Vitamin D (Vitamin D) 2,000 units DAILY PO Last administered on 01/24/17 08:57 ; Start 01/23/17 at 09:00; Stop 02/22/17 at 08:59 Allergies Coded Allergies: Penicillins (Verified Allergy, Mild, 08/12/12) MATA MIGUEL MD Jan 24, 2017 17:31
[2017-01-24 18:00] VITALS: BP 113/55
[2017-01-24] MEDS: PALIPERIDONE 3 MG ER TAB (INVEGA) PO SCH (20:58)
[2017-01-25] MEDS: LEVOTHYROXINE 50MCG TABLET (0.05MG) PO SCH (06:07)
[2017-01-25 06:44] VITALS: BP 120/78
[2017-01-25] MEDS: ALBUTEROL SULFATE 2.5 MG/0.5 ML INH NEB SOLN INH SCH ×4 (07:47→20:00)
[2017-01-25] MEDS: VITAMIN D 1,000 INTERNATIONAL UNITS TABLET PO SCH (08:04)
[2017-01-25] MEDS: QUEtiapine FUMARATE 50 MG TAB PO SCH ×2 (08:04→21:00)
[2017-01-25] MEDS: PALIPERIDONE 6 MG ER TAB (INVEGA) PO SCH (08:04)
[2017-01-25] MEDS: lamoTRIgine 25 MG TAB PO SCH (08:05)
[2017-01-25] MEDS: ASPIRIN 81 MG ENTERIC TAB PO SCH (08:05)
[2017-01-25] MEDS: ADVAIR HFA 230/21MCG INHALER INH SCH ×2 (08:05→21:20)
[2017-01-25] MEDS: FAMOTIDINE 20 MG TAB PO SCH ×2 (08:05→21:19)
[2017-01-25] MEDS: PANTOPRAZOLE 40MG TAB (PROTONIX) PO SCH (08:05)
[2017-01-25] MEDS: LISINOPRIL 10 MG TAB PO SCH (08:05)
[2017-01-25] MEDS: GABAPENTIN 300 MG CAP PO SCH ×3 (08:05→21:20)
[2017-01-25] MEDS: NICOTINE 21MG/24HR 1 EA TRANSDERMAL TD SCH (08:05)
[2017-01-25] MEDS: MELOXICAM (MOBIC) 7.5 MG TAB PO SCH (08:05)
[2017-01-25] MEDS: METOPROLOL TART 25 MG TABLET PO SCH ×2 (08:06→21:20)
[2017-01-25] MEDS: levETIRAcetam 250MG TABLET (KEPPRA) PO SCH (08:06)
[2017-01-25] MEDS: DULoxetine 20 MG CAP (CYMBALTA) PO SCH ×2 (08:06→21:19)
[2017-01-25] MEDS: metFORMIN (GLUCOPHAGE) 500 MG TAB PO SCH ×2 (08:06→17:15)
[2017-01-25] MEDS: TIOTROPIUM INHALER/CAPSULE (SPIRIVA) INH SCH (08:06)
[2017-01-25] MEDS: ASCORBIC ACID 500 MG TAB PO SCH (08:07)
[2017-01-25] MEDS: PRAVASTATIN 20 MG TAB PO SCH (08:07)
[2017-01-25] MEDS: carBAMazepine 100 MG *1/2* TAB PO SCH (08:07)
[2017-01-25] MEDS: ZONISAMIDE 100 MG CAP (ZONEGRAN) PO SCH ×2 (09:00→21:20)
[2017-01-25] MEDS ORDERED: PALIPERIDONE PALMITATE 234 MG/1.5 ML INJ (INVEGA SUSTENNA)(J2426) IM SCH (09:00)
[2017-01-25] MEDS ORDERED: hydrOXYzine 50 MG TAB PO PRN (13:00)
--- NOTE | 2017-01-25 17:55 | MHIPNPDOC ---
[facility] Progress Note Progress Note DATE OF SERVICE: 01/25/17 HISTORY: Patient reports being able to continue to tolerate groups; states that he is unsure if he would be safe when left alone but requests that the 1:1 sitter be removed. He feels that he would be able to speak with staff if feeling unsafe. A discussion was had with the patient about the plan to switch him from oral Invega to the Sustenna shot. Patient appeared to understand. Patient opted to take a shower and have assistance with shaving. VITAL SIGNS: See below. NEW TEST RESULTS: see below. CURRENT MEDICATIONS: See below. MENTAL STATUS EXAMINATION: Patient is a 56-year old male, who is dressed in [facility]; he is mildly disheveled with fair hygiene/grooming; patient is calm and cooperative with interview today Speech: Is fluent; normal rate, tone, and volume Thought processes including: logical, coherent Thought content: intermittent SI; reports attempting to improve coping skills through attending groups Description of associations: intact Description of abnormal or psychotic thoughts: denies AVH, does not appear internally preoccupied; no paranoia or delusions elicited Judgment: fair Insight: fair Orientation: x3 Recent and remote memory: intact Attention span and concentration: intact Mood: "feeling a bit better". Affect: dysphoric; increase range compared to previous days; congruent to mood and thought content DIAGNOSES: Schizoaffective, Depressive Type Borderline Personality Disorder ASSESSMENT: Patient is improving on Invega, demonstrating less paranoia and increased frustration tolerance. Patient is becoming more readily able to participate in his treatment on the unit. He continues to report having some pain but expresses understanding after having the Pain Management consult discussed with him. He appears somewhat anxious in regards to his future placement but is currently focused on becoming more stable. MANAGEMENT PLAN: Will continue current medications; administer Invega Sustenna 234mg; decrease Invega to 3mg BID tomorrow; plan for next Invega injection next week; continue to encourage group participation TIME SPENT: 20 minutes. Vital Signs Vital Signs Date Time Temp Pulse Resp B/P (MAP) Pulse Ox O2 Delivery O2 Flow Rate FiO2 01/25/17 08:06 71 120/78 01/25/17 06:44 98.0 16 01/23/17 12:54 Room Air 01/21/17 15:42 94 Laboratory Data 24H Labs Laboratory Tests 2 01/25/17 06:06: Bedside Glucose (Misc Panel) 127H 01/25/17 17:15: Bedside Glucose (Misc Panel) 158H Current Medications Current Medications Acetaminophen (Tylenol Tab) 650 mg Q6HP PRN PO HEADACHE or DISCOMFORT; Start at 17:15; Stop 02/20/17 at 17:14 Albuterol Sulfate (Proventil Neb) 2.5 mg Q2HP PRN INH SOB/WHEEZING; Start 01/22 at 09:30; Stop 02/21/17 at 09:29 Albuterol Sulfate (Proventil Neb) 2.5 mg RQID INH Last administered on 14:52; Start 01/22/17 at 12:00; Stop 02/21/17 at 11:59 Albuterol/ Ipratropium (Duoneb (Ipr 0.5mg/Alb 2.5mg)) 3 ml Q2HP PRN NEB SOB/ WHEEZING; Start 01/22/17 at 09:30; Stop 01/22/17 at 09:33; Status DC Albuterol/ Ipratropium (Duoneb (Ipr 0.5mg/Alb 2.5mg)) 3 ml RQID NEB ; Start 04/28 at 08:00; Stop 01/22/17 at 09:33; Status DC Ascorbic Acid (Vitamin C) 1,000 mg DAILY PO Last administered on 01/25/17 08: 07; Start 01/22/17 at 09:00; Stop 02/21/17 at 08:59 Aspirin (Ecotrin) 81 mg QAM PO Last administered on 01/25/17 08:05; Start 04/28 at 09:00; Stop 02/21/17 at 08:59 Carbamazepine (TEGretol) 300 mg DAILY PO Last administered on 01/25/17 08:07; Start 01/22/17 at 09:00; Stop 02/21/17 at 08:59 Duloxetine HCl (Cymbalta) 40 mg QHS PO Last administered on 01/24/17 20:58; Start 01/24/17 at 21:00; Stop 02/23/17 at 20:59 Duloxetine HCl (Cymbalta) 80 mg DAILY PO Last administered on 01/25/17 08:06; Start 01/22/17 at 09:00; Stop 02/21/17 at 08:59 Famotidine (Pepcid) 20 mg BID PO Last administered on 01/25/17 08:05; Start at 21:00; Stop 02/20/17 at 20:59 Gabapentin (Neurontin) 600 mg TID PO Last administered on 01/25/17 15:30; Start 01/21/17 at 21:00; Stop 02/20/17 at 20:59 Home Med (Med Rec Complete!) ASDIRECTED XX ; Start 01/21/17 at 16:00; Stop 03/29 at 16:00; Status DC Hydroxyzine HCl (Atarax) 100 mg Q4HP PRN PO AGITATION; Start 01/25/17 at 13:00 ; Stop 02/24/17 at 12:59 Lamotrigine (LaMICtal) 50 mg QAM PO Last administered on 01/25/17 08:05; Start 01/22/17 at 09:00; Stop 02/21/17 at 08:59 Levetiracetam (Keppra) 1,000 mg BID PO Last administered on 01/25/17 08:06; Start 01/21/17 at 21:00; Stop 01/25/17 at 09:37; Status DC Levothyroxine Sodium (Synthroid) 50 mcg DAILY@06 PO Last administered on 06:07; Start 01/22/17 at 06:00; Stop 02/21/17 at 05:59 Lisinopril (Prinivil) 10 mg DAILY PO Last administered on 01/25/17 08:05; Start 01/22/17 at 09:00; Stop 02/21/17 at 08:59 Magnesium Hydroxide (Milk Of Magnesia) 30 ml DAILYPRN PRN PO CONSTIPATION; Start 01/21/17 at 17:15; Stop 02/20/17 at 17:14 Meloxicam (Mobic) 15 mg DAILY PO Last administered on 01/25/17 08:05; Start at 09:00; Stop 02/21/17 at 08:59 Metformin HCl (Glucophage) 500 mg BID@08,18 PO Last administered on 01/25/17 17:15; Start 01/21/17 at 18:00; Stop 02/20/17 at 17:59 Metoprolol Tartrate (Lopressor) 25 mg BID PO Last administered on 01/25/17 08: 06; Start 01/21/17 at 21:00; Stop 02/20/17 at 20:59 Nicotine (Nicoderm Cq 21mg) 1 patch DAILY TD Last administered on 01/25/17 08: 05; Start 01/21/17 at 09:00; Stop 02/20/17 at 08:59 Paliperidone (Invega) 3 mg QAM PO ; Start 01/26/17 at 09:00; Stop 02/25/17 at 08:59 Paliperidone (Invega) 3 mg QHS PO Last administered on 01/24/17 20:58; Start 01/23/17 at 21:00; Stop 02/22/17 at 20:59 Paliperidone (Invega) 6 mg DAILY PO Last administered on 01/25/17 08:04; Start 01/22/17 at 09:00; Stop 01/25/17 at 10:42; Status DC Paliperidone Palmitate (Invega Sustenna) 234 mg Q30D IM Last administered on 11:33; Start 01/25/17 at 09:00; Stop 02/24/17 at 08:59 Pantoprazole Sodium (Protonix) 40 mg DAILY PO Last administered on 01/25/17 08 :05; Start 01/22/17 at 09:00; Stop 02/21/17 at 08:59 Pravastatin Sodium (Pravachol) 40 mg QAM PO Last administered on 01/25/17 08: 07; Start 01/22/17 at 09:00; Stop 02/21/17 at 08:59 Quetiapine Fumarate (SEROquel) 100 mg BID@0900,1200 PO Last administered on 08:59; Start 01/24/17 at 09:00; Stop 01/24/17 at 12:04; Status DC Quetiapine Fumarate (SEROquel) 100 mg BID@0900,1600 PO Last administered on 17:20; Start 01/22/17 at 09:00; Stop 01/23/17 at 17:35; Status DC Quetiapine Fumarate (SEROquel) 150 mg BID PO ; Start 01/25/17 at 21:00; Stop at 15:59 Quetiapine Fumarate (SEROquel) 150 mg TID PO Last administered on 01/25/17 08: 04; Start 01/24/17 at 16:00; Stop 01/25/17 at 10:39; Status DC Quetiapine Fumarate (SEROquel) 300 mg QHS PO Last administered on 01/23/17 21: 19; Start 01/21/17 at 21:00; Stop 01/24/17 at 12:04; Status DC Salmeterol Xinafoate/ Fluticasone (Advair Hfa 230/ 21) 2 puff BID INH Last administered on 01/25/17 08:05; Start 01/22/17 at 09:00; Stop 02/21/17 at 08: 59 Sertraline HCl (Zoloft) 200 mg DAILY PO Last administered on 01/22/17 08:35; Start 01/22/17 at 09:00; Stop 01/22/17 at 10:16; Status DC Tiotropium [place] (Spiriva Handihaler) 1 inhalation DAILY@0800 INH Last administered on 01/25/17 08:06; Start 01/22/17 at 08:00; Stop 02/21/17 at 07: 59 Vitamin D (Vitamin D) 2,000 units DAILY PO Last administered on 01/25/17 08:04 ; Start 01/23/17 at 09:00; Stop 02/22/17 at 08:59 Zonisamide (Zonegran) 100 mg BID PO ; Start 01/25/17 at 09:00; Stop 02/24/17 at 08:59 Allergies Coded Allergies: Penicillins (Verified Allergy, Mild, 08/12/12) MATA MIGUEL MD Jan 25, 2017 17:55
[2017-01-25 18:00] VITALS: BP 131/62
[2017-01-25] MEDS: PALIPERIDONE 3 MG ER TAB (INVEGA) PO SCH (21:19)
[2017-01-26] MEDS: LEVOTHYROXINE 50MCG TABLET (0.05MG) PO SCH (06:48)
[2017-01-26 06:57] VITALS: BP 130/69
[2017-01-26] MEDS: TIOTROPIUM INHALER/CAPSULE (SPIRIVA) INH SCH (07:01)
[2017-01-26] MEDS: metFORMIN (GLUCOPHAGE) 500 MG TAB PO SCH ×2 (07:01→17:12)
[2017-01-26] MEDS: ALBUTEROL SULFATE 2.5 MG/0.5 ML INH NEB SOLN INH SCH ×2 (08:00→20:00)
[2017-01-26] MEDS: MELOXICAM (MOBIC) 7.5 MG TAB PO SCH (08:15)
[2017-01-26] MEDS: ADVAIR HFA 230/21MCG INHALER INH SCH ×2 (08:15→21:00)
[2017-01-26] MEDS: FAMOTIDINE 20 MG TAB PO SCH ×2 (08:15→21:00)
[2017-01-26] MEDS: ASPIRIN 81 MG ENTERIC TAB PO SCH (08:15)
[2017-01-26] MEDS: PANTOPRAZOLE 40MG TAB (PROTONIX) PO SCH (08:15)
[2017-01-26] MEDS: VITAMIN D 1,000 INTERNATIONAL UNITS TABLET PO SCH (08:15)
[2017-01-26] MEDS: ASCORBIC ACID 500 MG TAB PO SCH (08:16)
[2017-01-26] MEDS: LISINOPRIL 10 MG TAB PO SCH (08:16)
[2017-01-26] MEDS: PALIPERIDONE 3 MG ER TAB (INVEGA) PO SCH ×2 (08:16→21:00)
[2017-01-26] MEDS: carBAMazepine 100 MG *1/2* TAB PO SCH (08:16)
[2017-01-26] MEDS: PRAVASTATIN 20 MG TAB PO SCH (08:16)
[2017-01-26] MEDS: DULoxetine 20 MG CAP (CYMBALTA) PO SCH ×2 (08:16→21:00)
[2017-01-26] MEDS: ZONISAMIDE 100 MG CAP (ZONEGRAN) PO SCH ×2 (08:16→21:00)
[2017-01-26] MEDS: lamoTRIgine 25 MG TAB PO SCH (08:16)
[2017-01-26] MEDS: NICOTINE 21MG/24HR 1 EA TRANSDERMAL TD SCH (08:17)
[2017-01-26] MEDS: GABAPENTIN 300 MG CAP PO SCH ×3 (08:17→21:00)
[2017-01-26] MEDS: METOPROLOL TART 25 MG TABLET PO SCH ×2 (08:17→21:00)
[2017-01-26] MEDS: QUEtiapine FUMARATE 50 MG TAB PO SCH ×2 (08:21→21:00)
--- NOTE | 2017-01-26 17:20 | MHIPN ---
DATE: 01/26/2017 CHIEF COMPLAINT: Feels frustrated. SUBJECTIVE: Seen for followup, he was marked as being on one-to-one observation and that is why I saw him, was informed that he was no longer on one-to-one observation. The patient says he has been feeling frustrated, concerned that what he says tends to spread around others, staff members, and that further frustrates him. Says sleep is fair, as is appetite. MENTAL STATUS EXAMINATION: Neat, cooperative but mildly irritable. No agitation. Coherent. Affect appears mildly irritable. Denies suicidal thoughts or intents. No homicidal ideas or intents at present. Possibly paranoid. Judgment and insight are compromised. ASSESSMENT: 1. Schizoaffective disorder. 2. Borderline personality disorder by history. PLAN: Continue current care and observation. He is to be encouraged to participate in activities in the unit.
[2017-01-26 18:00] VITALS: BP 136/74
[2017-01-27] MEDS: LEVOTHYROXINE 50MCG TABLET (0.05MG) PO SCH (06:19)
[2017-01-27 07:00] VITALS: BP 130/71
[2017-01-27] MEDS: metFORMIN (GLUCOPHAGE) 500 MG TAB PO SCH ×2 (07:13→17:15)
[2017-01-27] MEDS: TIOTROPIUM INHALER/CAPSULE (SPIRIVA) INH SCH (07:13)
[2017-01-27] MEDS: LISINOPRIL 10 MG TAB PO SCH (07:17)
[2017-01-27] MEDS: carBAMazepine 100 MG *1/2* TAB PO SCH (07:17)
[2017-01-27] MEDS: ADVAIR HFA 230/21MCG INHALER INH SCH ×2 (07:17→21:00)
[2017-01-27] MEDS: DULoxetine 20 MG CAP (CYMBALTA) PO SCH ×2 (07:18→21:00)
[2017-01-27] MEDS: VITAMIN D 1,000 INTERNATIONAL UNITS TABLET PO SCH (07:18)
[2017-01-27] MEDS: MELOXICAM (MOBIC) 7.5 MG TAB PO SCH (07:18)
[2017-01-27] MEDS: lamoTRIgine 25 MG TAB PO SCH (07:18)
[2017-01-27] MEDS: ASCORBIC ACID 500 MG TAB PO SCH (07:18)
[2017-01-27] MEDS: FAMOTIDINE 20 MG TAB PO SCH ×2 (07:18→21:00)
[2017-01-27] MEDS: PRAVASTATIN 20 MG TAB PO SCH (07:18)
[2017-01-27] MEDS: METOPROLOL TART 25 MG TABLET PO SCH ×2 (07:19→21:00)
[2017-01-27] MEDS: GABAPENTIN 300 MG CAP PO SCH ×3 (07:19→21:00)
[2017-01-27] MEDS: ASPIRIN 81 MG ENTERIC TAB PO SCH (07:19)
[2017-01-27] MEDS: QUEtiapine FUMARATE 50 MG TAB PO SCH ×3 (07:19→21:00)
[2017-01-27] MEDS: PANTOPRAZOLE 40MG TAB (PROTONIX) PO SCH (07:20)
[2017-01-27] MEDS: NICOTINE 21MG/24HR 1 EA TRANSDERMAL TD SCH (07:20)
[2017-01-27] MEDS: PALIPERIDONE 3 MG ER TAB (INVEGA) PO SCH ×2 (07:20→21:00)
[2017-01-27] MEDS: ZONISAMIDE 100 MG CAP (ZONEGRAN) PO SCH ×2 (07:22→21:00)
[2017-01-27] MEDS: ALBUTEROL SULFATE 2.5 MG/0.5 ML INH NEB SOLN INH SCH ×4 (08:00→20:00)
[2017-01-27 18:00] VITALS: BP 116/63
[2017-01-28] MEDS: LEVOTHYROXINE 50MCG TABLET (0.05MG) PO SCH (06:10)
[2017-01-28 06:39] VITALS: BP 140/86
[2017-01-28] MEDS: metFORMIN (GLUCOPHAGE) 500 MG TAB PO SCH ×2 (07:14→18:00)
[2017-01-28] MEDS: TIOTROPIUM INHALER/CAPSULE (SPIRIVA) INH SCH (07:14)
[2017-01-28] MEDS: ALBUTEROL SULFATE 2.5 MG/0.5 ML INH NEB SOLN INH SCH ×3 (08:00→18:41)
[2017-01-28] MEDS: ADVAIR HFA 230/21MCG INHALER INH SCH ×3 (09:00→23:12)
[2017-01-28] MEDS: PANTOPRAZOLE 40MG TAB (PROTONIX) PO SCH (09:00)
[2017-01-28] MEDS: ZONISAMIDE 100 MG CAP (ZONEGRAN) PO SCH ×2 (09:00→21:00)
[2017-01-28] MEDS: VITAMIN D 1,000 INTERNATIONAL UNITS TABLET PO SCH (09:00)
[2017-01-28] MEDS: FAMOTIDINE 20 MG TAB PO SCH ×2 (09:00→21:00)
[2017-01-28] MEDS: METOPROLOL TART 25 MG TABLET PO SCH ×2 (09:00→21:00)
[2017-01-28] MEDS: PRAVASTATIN 20 MG TAB PO SCH (09:00)
[2017-01-28] MEDS: ASCORBIC ACID 500 MG TAB PO SCH (09:00)
[2017-01-28] MEDS: LISINOPRIL 10 MG TAB PO SCH (09:00)
[2017-01-28] MEDS: carBAMazepine 100 MG *1/2* TAB PO SCH (09:00)
[2017-01-28] MEDS: NICOTINE 21MG/24HR 1 EA TRANSDERMAL TD SCH (09:00)
[2017-01-28] MEDS: ASPIRIN 81 MG ENTERIC TAB PO SCH (09:00)
[2017-01-28] MEDS: DULoxetine 20 MG CAP (CYMBALTA) PO SCH ×2 (09:00→21:00)
[2017-01-28] MEDS: MELOXICAM (MOBIC) 7.5 MG TAB PO SCH (09:00)
[2017-01-28] MEDS: PALIPERIDONE 3 MG ER TAB (INVEGA) PO SCH ×2 (09:00→21:00)
[2017-01-28] MEDS: lamoTRIgine 25 MG TAB PO SCH (09:00)
[2017-01-28] MEDS: GABAPENTIN 300 MG CAP PO SCH ×3 (09:00→21:00)
[2017-01-28] MEDS: QUEtiapine FUMARATE 50 MG TAB PO SCH ×2 (09:00→21:00)
--- NOTE | 2017-01-28 17:48 | MHIPNPDOC ---
[facility] Progress Note Progress Note DATE OF SERVICE: 01/28/17 HISTORY: Irritable today; states that staff is siding with other patients of "accusing me of things I didn't do" but will not elaborate. Fixated on idea that police have been called to report him. Refusing most medications today stating "I'm being poisoned here! Why would I put any poison in my body." Per staff the patient has been increasingly irritable and has been testing limits, asking to utilize a phone in private without staff supervision. Patient believes that a different hospital would improve his care, however he is careful to note that he feels the physician team assessing him has been "good people" and listening to him. Patient also briefly pauses his tirade to ask calmly "How was your weekend?" in a conversational tone. VITAL SIGNS: See below. NEW TEST RESULTS: as below. CURRENT MEDICATIONS: See below. MENTAL STATUS EXAMINATION: Patient is a 56-year old male, who is unkempt; irritable with interview, agitated Speech: Is fluent; hostile tone; normal rate and volume Thought processes including: illogical, paranoid, perseverative Thought content: states "I don't know, maybe I don't want to live" in sarcastic tone when asked about SI, denies HI; focused on thought that staff is against him Abstract reasoning, and computation: limited. Description of associations: intact Description of abnormal or psychotic thoughts: denies AVH, does not appear internally preoccupied; paranoia and delusions evident Judgment: poor Insight: limited/poor Orientation: x3 Recent and remote memory: intact Attention span and concentration: intact Mood: "I don't like this hospital; I don't trust anyone." Affect: irritable/ hostile; restricted range; congruent to mood and thought content DIAGNOSES: Schizoaffective Disorder Borderline Personality Disorder ASSESSMENT: Patient appears to be acting out for unclear reasons. He was increasingly irritable over the weekend but today has refused all psychotropics and much of his medical therapy. However, patient is observed to be heavily splitting in his response to staff, idolizing physicians and denigrating personal support worker. He has told his community planner he thinks long-term hospitalization would benefit him. Patient is known to have current housing issue and this may be a contributing factor as he has expressed disfavor in seeking assistance through [facility] as was the current plan upon discharge. Patient' s delusions are not consistent with his previous reports and his current decompensation has no obvious provoking factor. MANAGEMENT PLAN: will continue to encourage patient to take medications and attend group; provide supportive care as necessary. TIME SPENT: 15 minutes. Vital Signs Vital Signs Date Time Temp Pulse Resp B/P (MAP) Pulse Ox O2 Delivery O2 Flow Rate FiO2 01/28/17 06:39 97.5 110 20 140/86 (104) 01/27/17 11:50 Room Air Laboratory Data 24H Labs Laboratory Tests 2 01/28/17 06:12: Bedside Glucose (Misc Panel) 133H Current Medications Current Medications Acetaminophen (Tylenol Tab) 650 mg Q6HP PRN PO HEADACHE or DISCOMFORT; Start at 17:15; Stop 02/20/17 at 17:14 Albuterol Sulfate (Proventil Neb) 2.5 mg Q2HP PRN INH SOB/WHEEZING; Start 01/22 at 09:30; Stop 02/21/17 at 09:29 Albuterol Sulfate (Proventil Neb) 2.5 mg RQID INH Last administered on 14:52; Start 01/22/17 at 12:00; Stop 02/21/17 at 11:59 Albuterol/ Ipratropium (Duoneb (Ipr 0.5mg/Alb 2.5mg)) 3 ml Q2HP PRN NEB SOB/ WHEEZING; Start 01/22/17 at 09:30; Stop 01/22/17 at 09:33; Status DC Albuterol/ Ipratropium (Duoneb (Ipr 0.5mg/Alb 2.5mg)) 3 ml RQID NEB ; Start 04/28 at 08:00; Stop 01/22/17 at 09:33; Status DC Ascorbic Acid (Vitamin C) 1,000 mg DAILY PO Last administered on 01/27/17 07: 18; Start 01/22/17 at 09:00; Stop 02/21/17 at 08:59 Aspirin (Ecotrin) 81 mg QAM PO Last administered on 01/27/17 07:19; Start 04/28 at 09:00; Stop 02/21/17 at 08:59 Carbamazepine (TEGretol) 300 mg DAILY PO Last administered on 01/27/17 07:17; Start 01/22/17 at 09:00; Stop 02/21/17 at 08:59 Duloxetine HCl (Cymbalta) 40 mg QHS PO Last administered on 01/25/17 21:19; Start 01/24/17 at 21:00; Stop 02/23/17 at 20:59 Duloxetine HCl (Cymbalta) 80 mg DAILY PO Last administered on 01/27/17 07:18; Start 01/22/17 at 09:00; Stop 02/21/17 at 08:59 Famotidine (Pepcid) 20 mg BID PO Last administered on 01/27/17 07:18; Start at 21:00; Stop 02/20/17 at 20:59 Gabapentin (Neurontin) 600 mg TID PO Last administered on 01/27/17 15:03; Start 01/21/17 at 21:00; Stop 02/20/17 at 20:59 Home Med (Med Rec Complete!) ASDIRECTED XX ; Start 01/21/17 at 16:00; Stop 03/29 at 16:00; Status DC Hydroxyzine HCl (Atarax) 100 mg Q4HP PRN PO AGITATION; Start 01/25/17 at 13:00 ; Stop 02/24/17 at 12:59 Lamotrigine (LaMICtal) 50 mg QAM PO Last administered on 01/27/17 07:18; Start 01/22/17 at 09:00; Stop 02/21/17 at 08:59 Levetiracetam (Keppra) 1,000 mg BID PO Last administered on 01/25/17 08:06; Start 01/21/17 at 21:00; Stop 01/25/17 at 09:37; Status DC Levothyroxine Sodium (Synthroid) 50 mcg DAILY@06 PO Last administered on 06:10; Start 01/22/17 at 06:00; Stop 02/21/17 at 05:59 Lisinopril (Prinivil) 10 mg DAILY PO Last administered on 01/27/17 07:17; Start 01/22/17 at 09:00; Stop 02/21/17 at 08:59 Magnesium Hydroxide (Milk Of Magnesia) 30 ml DAILYPRN PRN PO CONSTIPATION; Start 01/21/17 at 17:15; Stop 02/20/17 at 17:14 Meloxicam (Mobic) 15 mg DAILY PO Last administered on 01/27/17 07:18; Start at 09:00; Stop 02/21/17 at 08:59 Metformin HCl (Glucophage) 500 mg BID@18 PO Last administered on 01/28/17 07:14; Start 01/21/17 at 18:00; Stop 02/20/17 at 17:59 Metoprolol Tartrate (Lopressor) 25 mg BID PO Last administered on 01/27/17 07: 19; Start 01/21/17 at 21:00; Stop 02/20/17 at 20:59 Nicotine (Nicoderm Cq 21mg) 1 patch DAILY TD Last administered on 01/27/17 07: 20; Start 01/21/17 at 09:00; Stop 02/20/17 at 08:59 Paliperidone (Invega) 3 mg QAM PO Last administered on 01/27/17 07:20; Start 01/26/17 at 09:00; Stop 02/25/17 at 08:59 Paliperidone (Invega) 3 mg QHS PO Last administered on 01/25/17 21:19; Start 01/23/17 at 21:00; Stop 02/22/17 at 20:59 Paliperidone (Invega) 6 mg DAILY PO Last administered on 01/25/17 08:04; Start 01/22/17 at 09:00; Stop 01/25/17 at 10:42; Status DC Paliperidone Palmitate (Invega Sustenna) 234 mg Q30D IM Last administered on 11:33; Start 01/25/17 at 09:00; Stop 02/24/17 at 08:59 Pantoprazole Sodium (Protonix) 40 mg DAILY PO Last administered on 01/27/17 07 :20; Start 01/22/17 at 09:00; Stop 02/21/17 at 08:59 Pravastatin Sodium (Pravachol) 40 mg QAM PO Last administered on 01/27/17 07: 18; Start 01/22/17 at 09:00; Stop 02/21/17 at 08:59 Quetiapine Fumarate (SEROquel) 100 mg BID@0900,1200 PO Last administered on 08:59; Start 01/24/17 at 09:00; Stop 01/24/17 at 12:04; Status DC Quetiapine Fumarate (SEROquel) 100 mg BID@0900,1600 PO Last administered on 17:20; Start 01/22/17 at 09:00; Stop 01/23/17 at 17:35; Status DC Quetiapine Fumarate (SEROquel) 150 mg BID PO ; Start 01/25/17 at 21:00; Stop at 15:59 Quetiapine Fumarate (SEROquel) 150 mg TID PO Last administered on 01/25/17 08: 04; Start 01/24/17 at 16:00; Stop 01/25/17 at 10:39; Status DC Quetiapine Fumarate (SEROquel) 300 mg QHS PO Last administered on 01/23/17 21: 19; Start 01/21/17 at 21:00; Stop 01/24/17 at 12:04; Status DC Salmeterol Xinafoate/ Fluticasone (Advair Hfa 230/ 21) 2 puff BID INH Last administered on 01/27/17 07:17; Start 01/22/17 at 09:00; Stop 02/21/17 at 08: 59 Sertraline HCl (Zoloft) 200 mg DAILY PO Last administered on 01/22/17 08:35; Start 01/22/17 at 09:00; Stop 01/22/17 at 10:16; Status DC Tiotropium [place] (Spiriva Handihaler) 1 inhalation DAILY@0800 INH Last administered on 01/28/17 07:14; Start 01/22/17 at 08:00; Stop 02/21/17 at 07: 59 Vitamin D (Vitamin D) 2,000 units DAILY PO Last administered on 01/27/17 07:18 ; Start 01/23/17 at 09:00; Stop 02/22/17 at 08:59 Zonisamide (Zonegran) 100 mg BID PO Last administered on 01/27/17 07:22; Start 01/25/17 at 09:00; Stop 02/24/17 at 08:59 Allergies Coded Allergies: Penicillins (Verified Allergy, Mild, 08/12/12) MATA MIGUEL MD Jan 28, 2017 17:48
[2017-01-28 18:00] VITALS: BP 110/68
[2017-01-29 06:00] VITALS: BP 144/72
[2017-01-29] MEDS: LEVOTHYROXINE 50MCG TABLET (0.05MG) PO SCH (06:00)
[2017-01-29] MEDS: ALBUTEROL SULFATE 2.5 MG/0.5 ML INH NEB SOLN INH SCH (07:47)
[2017-01-29] MEDS: metFORMIN (GLUCOPHAGE) 500 MG TAB PO SCH ×2 (08:00→17:52)
[2017-01-29] MEDS: TIOTROPIUM INHALER/CAPSULE (SPIRIVA) INH SCH (08:00)
[2017-01-29] MEDS ORDERED: ALBUTEROL 90 MCG/ACT 8GM HFA INHALER INH PRN (08:45)
[2017-01-29] MEDS: DULoxetine 20 MG CAP (CYMBALTA) PO SCH ×2 (08:57→21:00)
[2017-01-29] MEDS: PALIPERIDONE 3 MG ER TAB (INVEGA) PO SCH ×2 (08:57→21:00)
[2017-01-29] MEDS: ASPIRIN 81 MG ENTERIC TAB PO SCH (08:57)
[2017-01-29] MEDS: METOPROLOL TART 25 MG TABLET PO SCH ×2 (08:57→21:00)
[2017-01-29] MEDS: lamoTRIgine 25 MG TAB PO SCH (08:57)
[2017-01-29] MEDS: MELOXICAM (MOBIC) 7.5 MG TAB PO SCH (08:57)
[2017-01-29] MEDS: VITAMIN D 1,000 INTERNATIONAL UNITS TABLET PO SCH (08:58)
[2017-01-29] MEDS: ADVAIR HFA 230/21MCG INHALER INH SCH ×2 (08:58→21:00)
[2017-01-29] MEDS: QUEtiapine FUMARATE 50 MG TAB PO SCH ×2 (08:58→21:00)
[2017-01-29] MEDS: LISINOPRIL 10 MG TAB PO SCH (08:58)
[2017-01-29] MEDS: GABAPENTIN 300 MG CAP PO SCH ×3 (08:58→21:00)
[2017-01-29] MEDS: ASCORBIC ACID 500 MG TAB PO SCH (08:58)
[2017-01-29] MEDS: PANTOPRAZOLE 40MG TAB (PROTONIX) PO SCH (08:58)
[2017-01-29] MEDS: FAMOTIDINE 20 MG TAB PO SCH ×2 (08:58→21:00)
[2017-01-29] MEDS: PRAVASTATIN 20 MG TAB PO SCH (08:58)
[2017-01-29] MEDS: carBAMazepine 100 MG *1/2* TAB PO SCH (08:58)
[2017-01-29] MEDS: ZONISAMIDE 100 MG CAP (ZONEGRAN) PO SCH ×2 (08:58→21:00)
[2017-01-29] MEDS: NICOTINE 21MG/24HR 1 EA TRANSDERMAL TD SCH (08:59)
[2017-01-29 16:12] VITALS: BP 138/70
[2017-01-29 16:13] VITALS: BP 133/82
--- NOTE | 2017-01-29 17:43 | MHIPNPDOC ---
[facility] [place] Progress Note Progress Note DATE OF SERVICE: 01/29/17 HISTORY: Patient continues to refuse medications and food, states that he feels he is being poisoned at the hospital and would be better off in another facility. Patient lying in bed today, refusing to get up and participate in any group activities. Had discussion with patient regarding his refusal of services and ability to maintain his hospitalization if he continues to refuse. VITAL SIGNS: See below. NEW TEST RESULTS: no new imaging/labs CURRENT MEDICATIONS: See below. MENTAL STATUS EXAMINATION: Patient is a 56-year old male, who is dressed in [facility] with fair hygiene; calm, uncooperative with exam or programming; dismissive Speech: Is fluent; minimal content, normal volume Thought processes including: unable to adequately asses Thought content: denies SI/HI, feels he is being poisoned on the unit Description of abnormal or psychotic thoughts: does not appear internally preoccupied; paranoia/delusions as previously Judgment: poor Insight: limited/poor Orientation: x3 Recent and remote memory: intact Attention span and concentration: intact Mood: patient shrugs and does not respond. Affect: neutral; flat range DIAGNOSES: Schizoaffective Disorder Borderline Personality Disorder ASSESSMENT: Patient does not appear to be a danger to himself or others, he has made no gestures or attempt during hospitalization. He has frequently been outright hostile towards staff and uncooperative with the treatment team unless his demands are met. Discussed with patient that if he continues to refuse medications and programming there is no indication to continue hospitalization. Patient voiced understanding but remains isolative. MANAGEMENT PLAN: continue to offer medications and suggest group attendance; if patient continues to refuse will plan for discharge due to non-compliance TIME SPENT: 15 minutes Vital Signs Vital Signs Date Time Temp Pulse Resp B/P (MAP) Pulse Ox O2 Delivery O2 Flow Rate FiO2 01/29/17 16:13 106 133/82 (99) 91 Room Air 01/29/17 16:12 97.9 20 Current Medications Current Medications Acetaminophen (Tylenol Tab) 650 mg Q6HP PRN PO HEADACHE or DISCOMFORT; Start at 17:15; Stop 02/20/17 at 17:14 Albuterol Sulfate (Proventil Neb) 2.5 mg Q2HP PRN INH SOB/WHEEZING; Start 01/22 at 09:30; Stop 01/29/17 at 08:33; Status DC Albuterol Sulfate (Proventil Neb) 2.5 mg RQID INH Last administered on 14:52; Start 01/22/17 at 12:00; Stop 01/29/17 at 08:33; Status DC Albuterol Sulfate (Proventil, Ventolin Hfa) 2 puff Q4HP PRN INH SHORTNESS OF BREATH; Start 01/29/17 at 08:45; Stop 02/28/17 at 08:44 Albuterol/ Ipratropium (Duoneb (Ipr 0.5mg/Alb 2.5mg)) 3 ml Q2HP PRN NEB SOB/ WHEEZING; Start 01/22/17 at 09:30; Stop 01/22/17 at 09:33; Status DC Albuterol/ Ipratropium (Duoneb (Ipr 0.5mg/Alb 2.5mg)) 3 ml RQID NEB ; Start 04/28 at 08:00; Stop 01/22/17 at 09:33; Status DC Ascorbic Acid (Vitamin C) 1,000 mg DAILY PO Last administered on 01/27/17 07: 18; Start 01/22/17 at 09:00; Stop 02/21/17 at 08:59 Aspirin (Ecotrin) 81 mg QAM PO Last administered on 01/27/17 07:19; Start 04/28 at 09:00; Stop 02/21/17 at 08:59 Carbamazepine (TEGretol) 300 mg DAILY PO Last administered on 01/27/17 07:17; Start 01/22/17 at 09:00; Stop 02/21/17 at 08:59 Duloxetine HCl (Cymbalta) 40 mg QHS PO Last administered on 01/25/17 21:19; Start 01/24/17 at 21:00; Stop 02/23/17 at 20:59 Duloxetine HCl (Cymbalta) 80 mg DAILY PO Last administered on 01/27/17 07:18; Start 01/22/17 at 09:00; Stop 02/21/17 at 08:59 Famotidine (Pepcid) 20 mg BID PO Last administered on 01/27/17 07:18; Start at 21:00; Stop 02/20/17 at 20:59 Gabapentin (Neurontin) 600 mg TID PO Last administered on 01/27/17 15:03; Start 01/21/17 at 21:00; Stop 02/20/17 at 20:59 Home Med (Med Rec Complete!) ASDIRECTED XX ; Start 01/21/17 at 16:00; Stop 03/29 at 16:00; Status DC Hydroxyzine HCl (Atarax) 100 mg Q4HP PRN PO AGITATION; Start 01/25/17 at 13:00 ; Stop 02/24/17 at 12:59 Lamotrigine (LaMICtal) 50 mg QAM PO Last administered on 01/27/17 07:18; Start 01/22/17 at 09:00; Stop 02/21/17 at 08:59 Levetiracetam (Keppra) 1,000 mg BID PO Last administered on 01/25/17 08:06; Start 01/21/17 at 21:00; Stop 01/25/17 at 09:37; Status DC Levothyroxine Sodium (Synthroid) 50 mcg DAILY@06 PO Last administered on 06:10; Start 01/22/17 at 06:00; Stop 02/21/17 at 05:59 Lisinopril (Prinivil) 10 mg DAILY PO Last administered on 01/27/17 07:17; Start 01/22/17 at 09:00; Stop 02/21/17 at 08:59 Magnesium Hydroxide (Milk Of Magnesia) 30 ml DAILYPRN PRN PO CONSTIPATION; Start 01/21/17 at 17:15; Stop 02/20/17 at 17:14 Meloxicam (Mobic) 15 mg DAILY PO Last administered on 01/27/17 07:18; Start at 09:00; Stop 02/21/17 at 08:59 Metformin HCl (Glucophage) 500 mg BID@18 PO Last administered on 01/28/17 07:14; Start 01/21/17 at 18:00; Stop 02/20/17 at 17:59 Metoprolol Tartrate (Lopressor) 25 mg BID PO Last administered on 01/27/17 07: 19; Start 01/21/17 at 21:00; Stop 02/20/17 at 20:59 Nicotine (Nicoderm Cq 21mg) 1 patch DAILY TD Last administered on 01/27/17 07: 20; Start 01/21/17 at 09:00; Stop 02/20/17 at 08:59 Paliperidone (Invega) 3 mg QAM PO Last administered on 01/27/17 07:20; Start 01/26/17 at 09:00; Stop 02/25/17 at 08:59 Paliperidone (Invega) 3 mg QHS PO Last administered on 01/25/17 21:19; Start 01/23/17 at 21:00; Stop 02/22/17 at 20:59 Paliperidone (Invega) 6 mg DAILY PO Last administered on 01/25/17 08:04; Start 01/22/17 at 09:00; Stop 01/25/17 at 10:42; Status DC Paliperidone Palmitate (Invega Sustenna) 234 mg Q30D IM Last administered on 11:33; Start 01/25/17 at 09:00; Stop 02/24/17 at 08:59 Pantoprazole Sodium (Protonix) 40 mg DAILY PO Last administered on 01/27/17 07 :20; Start 01/22/17 at 09:00; Stop 02/21/17 at 08:59 Pravastatin Sodium (Pravachol) 40 mg QAM PO Last administered on 01/27/17 07: 18; Start 01/22/17 at 09:00; Stop 02/21/17 at 08:59 Quetiapine Fumarate (SEROquel) 100 mg BID@0900,1200 PO Last administered on 08:59; Start 01/24/17 at 09:00; Stop 01/24/17 at 12:04; Status DC Quetiapine Fumarate (SEROquel) 100 mg BID@0900,1600 PO Last administered on 17:20; Start 01/22/17 at 09:00; Stop 01/23/17 at 17:35; Status DC Quetiapine Fumarate (SEROquel) 150 mg BID PO ; Start 01/25/17 at 21:00; Stop at 15:59 Quetiapine Fumarate (SEROquel) 150 mg TID PO Last administered on 01/25/17 08: 04; Start 01/24/17 at 16:00; Stop 01/25/17 at 10:39; Status DC Quetiapine Fumarate (SEROquel) 300 mg QHS PO Last administered on 01/23/17 21: 19; Start 01/21/17 at 21:00; Stop 01/24/17 at 12:04; Status DC Salmeterol Xinafoate/ Fluticasone (Advair Hfa 230/ 21) 2 puff BID INH Last administered on 01/28/17 23:12; Start 01/22/17 at 09:00; Stop 02/21/17 at 08: 59 Sertraline HCl (Zoloft) 200 mg DAILY PO Last administered on 01/22/17 08:35; Start 01/22/17 at 09:00; Stop 01/22/17 at 10:16; Status DC Tiotropium [place] (Spiriva Handihaler) 1 inhalation DAILY@0800 INH Last administered on 01/28/17 07:14; Start 01/22/17 at 08:00; Stop 02/21/17 at 07: 59 Vitamin D (Vitamin D) 2,000 units DAILY PO Last administered on 01/27/17 07:18 ; Start 01/23/17 at 09:00; Stop 02/22/17 at 08:59 Zonisamide (Zonegran) 100 mg BID PO Last administered on 01/27/17 07:22; Start 01/25/17 at 09:00; Stop 02/24/17 at 08:59 Allergies Coded Allergies: Penicillins (Verified Allergy, Mild, 08/12/12) MATA MIGUEL MD Jan 29, 2017 17:43
[2017-01-30] MEDS: LEVOTHYROXINE 50MCG TABLET (0.05MG) PO SCH ×2 (06:00→06:46)
[2017-01-30 08:15] VITALS: BP 176/89
[2017-01-30] MEDS: DULoxetine 20 MG CAP (CYMBALTA) PO SCH ×2 (09:36→21:00)
[2017-01-30] MEDS: ZONISAMIDE 100 MG CAP (ZONEGRAN) PO SCH ×2 (09:36→21:00)
[2017-01-30] MEDS: carBAMazepine 100 MG *1/2* TAB PO SCH (09:36)
[2017-01-30] MEDS: VITAMIN D 1,000 INTERNATIONAL UNITS TABLET PO SCH (09:37)
[2017-01-30] MEDS: ASCORBIC ACID 500 MG TAB PO SCH (09:37)
[2017-01-30] MEDS: FAMOTIDINE 20 MG TAB PO SCH ×2 (09:37→21:00)
[2017-01-30] MEDS: lamoTRIgine 25 MG TAB PO SCH (09:38)
[2017-01-30] MEDS: TIOTROPIUM INHALER/CAPSULE (SPIRIVA) INH SCH (09:40)
[2017-01-30] MEDS: ASPIRIN 81 MG ENTERIC TAB PO SCH (09:40)
[2017-01-30] MEDS: QUEtiapine FUMARATE 50 MG TAB PO SCH ×2 (09:40→21:00)
[2017-01-30] MEDS: PANTOPRAZOLE 40MG TAB (PROTONIX) PO SCH (09:40)
[2017-01-30] MEDS: metFORMIN (GLUCOPHAGE) 500 MG TAB PO SCH ×2 (09:41→18:46)
[2017-01-30] MEDS: PRAVASTATIN 20 MG TAB PO SCH (09:41)
[2017-01-30] MEDS: GABAPENTIN 300 MG CAP PO SCH ×4 (09:42→21:00)
[2017-01-30] MEDS: MELOXICAM (MOBIC) 7.5 MG TAB PO SCH (09:42)
[2017-01-30] MEDS: PALIPERIDONE 3 MG ER TAB (INVEGA) PO SCH ×2 (09:42→21:00)
[2017-01-30] MEDS: ADVAIR HFA 230/21MCG INHALER INH SCH ×2 (09:43→21:00)
[2017-01-30] MEDS: LISINOPRIL 10 MG TAB PO SCH (09:48)
[2017-01-30] MEDS: METOPROLOL TART 25 MG TABLET PO SCH ×2 (09:49→21:00)
[2017-01-30] MEDS: NICOTINE 21MG/24HR 1 EA TRANSDERMAL TD SCH (09:57)
[2017-01-30 10:14] LABS: BASO % 0.1 % (0.0-1.0); EOS % 0.4 % (0.0-3.0); LARGE UNSTAINED CELL # 0.2 K/mm3 (0.0-0.4); LARGE UNSTAINED CELL % 1.5 % (0.0-4.0); LYMPH # 0.9 K/mm3 (1.5-4.5); LYMPH % 9.2 % (24.0-44.0); MEAN CORPUSCULAR HEMOGLOBIN 33.3 pg (27.0-33.0); MEAN CORPUSCULAR HGB CONC 35.6 g/dl (32.0-36.5); MEAN CORPUSCULAR VOLUME 93.4 fl (80.0-96.0); MONO # 0.6 K/mm3 (0.0-0.8); MONO % 5.9 % (0.0-5.0); NEUTROPHILS # 8.4 K/mm3 (1.8-7.7); NEUTROPHILS % 82.9 % (36.0-66.0); PLATELET COUNT, AUTOMATED 297 k/mm3 (150-450); RED CELL DISTRIBUTION WIDTH 11.8 % (11.5-14.5); WHITE BLOOD COUNT 10.1 K/mm3 (4.0-10.0)
[2017-01-30 10:26] LABS: ALBUMIN 4.4 GM/DL (3.2-5.2); ALBUMIN/GLOBULIN RATIO 1.26 (1.00-1.93); ALKALINE PHOSPHATASE 118 U/L (45-117); ALT/SGPT 30 U/L (12-78); ANION GAP 13 MEQ/L (8-16); AST/SGOT 13 U/L (15-37); BILIRUBIN,TOTAL 0.4 MG/DL (0.2-1.0); BLOOD UREA NITROGEN 21 MG/DL (7-18); CALCIUM LEVEL 9.5 MG/DL (8.5-10.1); CARBON DIOXIDE LEVEL 23 MEQ/L (21-32); CHLORIDE LEVEL 104 MEQ/L (98-107); CREATININE FOR GFR 1.09 MG/DL (0.70-1.30); GLOMERULAR FILTRATION RATE > 60.0 (>56); GLUCOSE, FASTING 154 MG/DL (70-105); SODIUM LEVEL 140 MEQ/L (136-145); TOTAL PROTEIN 7.9 GM/DL (6.4-8.2)
--- NOTE | 2017-01-30 11:38 | IPNPDOC ---
Date Seen The patient was seen on 01/30/17. Progress Note HPI: 56yoM admitted to [facility] for schizoaffective disorder, being medically examined today. Requested to re evaluate the pt this AM related to urinary incontinence. The pt is sitting in the bedside chair and is currently incontinent of urine, urine is noted on the floor. He is not providing any history at this time and does not answer any of my questions but is following commands. He has been refusing to take his medications while on [facility] for the past 2 days and had reported on admission he had not been compliant with medications prior to admission for a few weeks. He has taken some of his medications this AM. The staff reports he has had some non productive cough, otherwise no concerns voiced as per pt. He had reported on admission he had not been using his inhalers. Denies any fevers, chills, weakness, fatigue, CARR, CP, SOB, palpitations, abdominal pain, N/V/D or changes in bowel habits. PMHx: Schizophrenia/schizoaffective disorder History of psychosis Anxiety Depression COPD Hypertension NIDDM GERD Seizure disorder Hypothyroid Dyslipidemia Peripheral neuropathy History of unsteady gait. Uses a cane for ambulation. Chronic low back pain Chronic pain Vitamin D deficiency PSHX: Bilateral foot surgery PE: GEN: 56yoM, appears older than stated age. Well-nourished, well developed. No acute distress. He is awake and alert, He is responding to commands but is non verbal. Neck supple, trachea midline. No lymphadenopathy or thyromegaly appreciated. CHEST: Regular rate and rhythm, +S1, +S2 LUNGS: Decreased breath sounds bilaterally. No wheezes noted, no rales, or rhonchi noted but Pt has poor effort on exam. No accessory muscle use. ABD: Round, soft, non-tender, non-distended. +Bowel sounds throughout. No rebound or guarding. No costovertebral angle tenderness. EXT: Pulses 2+ bilaterally dorsalis pedis and radial. No lower extremity edema appreciated. SKIN: [place], dry, warm. Capillary refill <2sec. No rashes. NEURO: Alert. No focal deficits appreciated. EKG: pending. XR LS spine 01/22/17 Mild degenerative disc disease at several levels. Vascular calcification. Otherwise negative limited lumbar spine series. CXR 01/22/17 Linear fibrosis left base. Otherwise no acute disease. A&P: 56yoM admitted to [facility] for schizoaffective disorder 1. Psych. Plan per Psychiatry. Obtain baseline EKG to assure the safety of psychiatric medications as they can prolong the QT interval. 2. Nicotine dependence. Patch available. 3. COPD. Resume patient's outpatient inhaler regimen. Pt has refused Duo nebs and subsequently were discontinued, will re order related to cough. Reinforced compliance with medications. Update CBC/CMP. Check PA and left lateral chest x- ray. Oxygen saturation is noted to be 96% on room air. 4. Follow up with PCP on discharge. Request copy of most recent note from last appointment with PCP. 5. NIDDM. Continue consistent carbohydrate diet. Metformin 500 mg by mouth twice a day. Fingerstick blood sugar twice a day. A1c on admission 6.0. Continue aspirin 81 mg daily. 6. Dyslipidemia. Continue statin. LDL 89 on admission. 7. Vitamin D deficiency. Vitamin D level 21. PO supplement added, will continue. 8. GERD. Continue Protonix 40 mg daily. Continue Pepcid 20 mg by mouth twice a day. 9. Hypertension. Continue lisinopril 10 mg daily. Continue metoprolol 25 mg by mouth twice a day with hold parameters. 10. Seizure disorder. Elizabeth was d/cd related to mood during this admission following recommendations as per Neurology. Continue Tegretol 300 mg by mouth daily. Update Tegretol level. Zonegran 100mg BID, Lamictal 50 mg daily. No seizure activity reported. 11. Hypothyroidism. Continue Synthroid 50 g daily. TSH is noted within normal limits. 12. Chronic low back pain/peripheral neuropathy/chronic pain. Pain management consultation completed 01/23/17 with recommendation to continue Outpt mgmt, Continue PT, Cymbalta. Continue gabapentin 600 mg 3 times a day, meloxicam 15 mg by mouth daily. Tylenol as needed. 13. Unsteady gait. PT evaluation completed. Continue with WW. Fall precautions. 14. Urinary incontinence. UA/UC requested. 15. AMS. Possibly related to Pt refusing his medications. Update labs. Update CXR related to H/O cough. Request CT Head. Discussed with Dr Chirinos, Psych attending. 16. Staff member Valdemar present throughout exam. VS, I&O, 24H, Fishbone Vital Signs/I&O Vital Signs Date Time Temp Pulse Resp B/P (MAP) Pulse Ox O2 Delivery O2 Flow Rate FiO2 01/30/17 09:49 104 165/84 01/30/17 08:15 97.5 18 96 Room Air Laboratory Data 24H LABS Laboratory Tests 2 01/30/17 09:46: Bedside Glucose (Misc Panel) 151H 01/30/17 09:51: White Blood Count 10.1H, Red Blood Count 5.05, Hemoglobin 16.8, Hematocrit 47.1 , Mean Corpuscular Volume 93.4, Mean Corpuscular Hemoglobin 33.3H, Mean Corpuscular Hemoglobin Concent 35.6, Red Cell Distribution Width 11.8, Platelet Count 297, Neutrophils (%) (Auto) 82.9H, Lymphocytes (%) (Auto) 9.2L, Monocytes (%) (Auto) 5.9H, Eosinophils (%) (Auto) 0.4, Basophils (%) (Auto) 0.1, Neutrophils # (Auto) 8.4H, Lymphocytes # (Auto) 0.9L, Monocytes # (Auto) 0.6, Eosinophils # (Auto) 0.0, Basophils # (Auto) 0.0, Large Unclassified Cells % 1.5 , Large Unclassified Cells # 0.2, Anion Gap 13, Glomerular Filtration Rate > 60.0, Blood Urea Nitrogen 21H, Creatinine 1.09, Sodium Level 140, Potassium Level 4.0, Chloride Level 104, Carbon Dioxide Level 23, Calcium Level 9.5, Aspartate Amino Transf (AST/SGOT) 13L, Alanine Aminotransferase (ALT/SGPT) 30, Alkaline Phosphatase 118H, Total Bilirubin 0.4, Total Protein 7.9, Albumin 4.4, Albumin/Globulin Ratio 1.26 CBC/BMP Laboratory Tests 01/30/17 09:51 Red Blood Count 5.05, Mean Corpuscular Volume 93.4, Mean Corpuscular Hemoglobin 33.3 H, Mean Corpuscular Hemoglobin Concent 35.6, Red Cell Distribution Width 11.8, Neutrophils (%) (Auto) 82.9 H, Lymphocytes (%) (Auto) 9.2 L, Monocytes (% ) (Auto) 5.9 H, Eosinophils (%) (Auto) 0.4, Basophils (%) (Auto) 0.1, Neutrophils # (Auto) 8.4 H, Lymphocytes # (Auto) 0.9 L, Monocytes # (Auto) 0.6, Eosinophils # (Auto) 0.0, Basophils # (Auto) 0.0, Calcium Level 9.5, Aspartate Amino Transf (AST/SGOT) 13 L, Alanine Aminotransferase (ALT/SGPT) 30, Alkaline Phosphatase 118 H, Total Bilirubin 0.4, Total Protein 7.9, Albumin 4.4 Madeline Miller Jan 30, 2017 11:38
[2017-01-30] MEDS ORDERED: IPRATROPIUM 0.5MG/ALBUTEROL 2.5MG INH SOL UD 3ML (DUONEB)(J7620) NEB PRN (11:45)
[2017-01-30 11:55] LABS: CARBAMAZEPINE (TEGRETOL) LEVEL 1.7 UG/ML (4.0-10.0)
--- NOTE | 2017-01-30 12:14 | REP ---
CHEST, TWO VIEWS: Two views of the chest are performed. COMPARISON: 01/22/2017 Once again, there is mild fibroatelectatic change in the lung bases without evidence of acute infiltrate or pulmonary edema. There is mild elevation of the right hemidiaphragm. The heart is not enlarged. Mediastinal silhouette is unchanged. IMPRESSION: No acute infiltrate. Signed by Sky Shine MD 01/30/2017 01:42 P
--- NOTE | 2017-01-30 14:26 | REP ---
CT study of the brain without contrast: History: Altered mental status. Comparison MRI study is from June 16, 2013. Findings: Digital preliminary manager aerospace radiograph is unremarkable. The patient is edentulous. Bone window settings demonstrate an intact bony calvarium. Visualized paranasal sinuses are clear. There is moderate vascular calcification in the distal carotid artery distribution bilaterally. There is evidence of a small subcutaneous cyst at the lateral aspect of the right orbit superficially. This measures 11 mm in diameter. No intraorbital abnormality is seen. There is mild diffuse intracranial atrophy. No evidence of intracranial hemorrhage is seen. No mass, infarction, extra-axial fluid collection or midline shift is seen. Shine white differentiation pattern is normal. Impression: Minimal diffuse atrophy. Vascular calcification noted. No acute intracranial lesion seen. 1.1 cm cyst at the superficial skin of the right lateral orbital margin. Signed by Shakir Lassiter MD 01/30/2017 05:24 P
[2017-01-30] MEDS: IPRATROPIUM 0.5MG/ALBUTEROL 2.5MG INH SOL UD 3ML (DUONEB)(J7620) NEB SCH ×2 (17:00→19:06)
--- NOTE | 2017-01-30 17:53 | MHIPNPDOC ---
[facility] Progress Note Progress Note DATE OF SERVICE: 01/30/17 HISTORY: Patient asleep in his room, did not wake to repeated calls. Per nursing the patient has been confused and minimally responsive. He has also had 2-3 episodes of enuresis since last night. A UA was performed along with other labs but there are no overt signs of infection. Head CT and CXR ordered, no evidence of acute processes. VITAL SIGNS: See below. NEW TEST RESULTS: see below; Head CT showed no acute intracranial process, CXR showed no acute infiltrate CURRENT MEDICATIONS: See below. MENTAL STATUS EXAMINATION: Patient is a 56-year old male, who is asleep and unable to participate in the interview. DIAGNOSES: Schizoaffective Disorder Borderline Personality Disorder ASSESSMENT: Patient's behavior appears to be a mix of volitional behaviors and decompensation. Given that the patient has been stressing his desire for longer- term treatment without clear indication of a pathology severe enough to warrant the transfer it is possible that the patient began refusing his medications as a volitional attempt to decompensate. This is suspected due to patient's rapid development of paranoia regarding being poisoned by his food and medications which was not previously present, also due to apparent decompensation when patient had been stabilizing on his regimen. At this time the patient continues to intermittently refuse medication, pointing towards a volitional aspect. However, as patient is decompensating he would be appropriate for a higher level of care at this time. MANAGEMENT PLAN: continue to offer medications; submit patient's chart for consideration by [facility] TIME SPENT: 15 minutes. Vital Signs Vital Signs Date Time Temp Pulse Resp B/P (MAP) Pulse Ox O2 Delivery O2 Flow Rate FiO2 01/30/17 09:49 104 165/84 01/30/17 08:15 97.5 18 96 Room Air Laboratory Data 24H Labs Laboratory Tests 2 01/30/17 08:35: Urine Appearance HAZY, Urine Color YELLOW, Urine pH 5.0, Urine Specific [place] 1.019, Urine Protein 1+H, Urine Glucose (UA) NEGATIVE, Urine Ketones TRACEH, Urine Urobilinogen 0.2, Urine Bilirubin NEGATIVE, Urine Leukocyte Esterase NEGATIVE, Urine Blood NEGATIVE, Urine Nitrite NEGATIVE, Urine WBC (Auto) 2, Urine RBC (Auto) 3, Urine Hyaline Casts (Auto) 9, Urine Bacteria (Auto) NEGATIVE , Urine Squamous Epithelial Cells 0, Urine Mucus (Auto) SMALL, Urine Sperm (Auto ) 01/30/17 09:46: Bedside Glucose (Misc Panel) 151H 01/30/17 09:51: White Blood Count 10.1H, Red Blood Count 5.05, Hemoglobin 16.8, Hematocrit 47.1 , Mean Corpuscular Volume 93.4, Mean Corpuscular Hemoglobin 33.3H, Mean Corpuscular Hemoglobin Concent 35.6, Red Cell Distribution Width 11.8, Platelet Count 297, Neutrophils (%) (Auto) 82.9H, Lymphocytes (%) (Auto) 9.2L, Monocytes (%) (Auto) 5.9H, Eosinophils (%) (Auto) 0.4, Basophils (%) (Auto) 0.1, Neutrophils # (Auto) 8.4H, Lymphocytes # (Auto) 0.9L, Monocytes # (Auto) 0.6, Eosinophils # (Auto) 0.0, Basophils # (Auto) 0.0, Large Unclassified Cells % 1.5 , Large Unclassified Cells # 0.2, Anion Gap 13, Glomerular Filtration Rate > 60.0, Blood Urea Nitrogen 21H, Creatinine 1.09, Sodium Level 140, Potassium Level 4.0, Chloride Level 104, Carbon Dioxide Level 23, Calcium Level 9.5, Aspartate Amino Transf (AST/SGOT) 13L, Alanine Aminotransferase (ALT/SGPT) 30, Alkaline Phosphatase 118H, Total Bilirubin 0.4, Total Protein 7.9, Albumin 4.4, Albumin/Globulin Ratio 1.26, Carbamazepine (Tegretol) Level 1.7L 01/30/17 17:16: Bedside Glucose (Misc Panel) 123H CBC/BMP Laboratory Tests 01/30/17 09:51 Red Blood Count 5.05, Mean Corpuscular Volume 93.4, Mean Corpuscular Hemoglobin 33.3 H, Mean Corpuscular Hemoglobin Concent 35.6, Red Cell Distribution Width 11.8, Neutrophils (%) (Auto) 82.9 H, Lymphocytes (%) (Auto) 9.2 L, Monocytes (% ) (Auto) 5.9 H, Eosinophils (%) (Auto) 0.4, Basophils (%) (Auto) 0.1, Neutrophils # (Auto) 8.4 H, Lymphocytes # (Auto) 0.9 L, Monocytes # (Auto) 0.6, Eosinophils # (Auto) 0.0, Basophils # (Auto) 0.0, Calcium Level 9.5, Aspartate Amino Transf (AST/SGOT) 13 L, Alanine Aminotransferase (ALT/SGPT) 30, Alkaline Phosphatase 118 H, Total Bilirubin 0.4, Total Protein 7.9, Albumin 4.4 Current Medications Current Medications Acetaminophen (Tylenol Tab) 650 mg Q6HP PRN PO HEADACHE or DISCOMFORT; Start at 17:15; Stop 02/20/17 at 17:14 Albuterol Sulfate (Proventil Neb) 2.5 mg Q2HP PRN INH SOB/WHEEZING; Start 01/22 at 09:30; Stop 01/29/17 at 08:33; Status DC Albuterol Sulfate (Proventil Neb) 2.5 mg RQID INH Last administered on t 14:52; Start 01/22/17 at 12:00; Stop 01/29/17 at 08:33; Status DC Albuterol Sulfate (Proventil, Ventolin Hfa) 2 puff Q4HP PRN INH SHORTNESS OF BREATH; Start 01/29/17 at 08:45; Stop 02/28/17 at 08:44 Albuterol/ Ipratropium (Duoneb (Ipr 0.5mg/Alb 2.5mg)) 3 ml Q2HP PRN NEB SOB/ WHEEZING; Start 01/22/17 at 09:30; Stop 01/22/17 at 09:33; Status DC Albuterol/ Ipratropium (Duoneb (Ipr 0.5mg/Alb 2.5mg)) 3 ml Q2HP PRN NEB SOB/ WHEEZING; Start 01/30/17 at 11:45; Stop 03/01/17 at 11:44 Albuterol/ Ipratropium (Duoneb (Ipr 0.5mg/Alb 2.5mg)) 3 ml RQ6H NEB ; Start at 14:00; Stop 03/01/17 at 13:59 Albuterol/ Ipratropium (Duoneb (Ipr 0.5mg/Alb 2.5mg)) 3 ml RQID NEB ; Start 04/28 at 08:00; Stop 01/22/17 at 09:33; Status DC Ascorbic Acid (Vitamin C) 1,000 mg DAILY PO Last administered on 01/30/17 09: 37; Start 01/22/17 at 09:00; Stop 02/21/17 at 08:59 Aspirin (Ecotrin) 81 mg QAM PO Last administered on 01/30/17 09:40; Start 04/28 at 09:00; Stop 02/21/17 at 08:59 Carbamazepine (TEGretol) 300 mg DAILY PO Last administered on 01/30/17 09:36; Start 01/22/17 at 09:00; Stop 02/21/17 at 08:59 Duloxetine HCl (Cymbalta) 40 mg QHS PO Last administered on 01/25/17 21:19; Start 01/24/17 at 21:00; Stop 02/23/17 at 20:59 Duloxetine HCl (Cymbalta) 80 mg DAILY PO Last administered on 01/30/17 09:36; Start 01/22/17 at 09:00; Stop 02/21/17 at 08:59 Famotidine (Pepcid) 20 mg BID PO Last administered on 01/30/17 09:37; Start at 21:00; Stop 02/20/17 at 20:59 Gabapentin (Neurontin) 600 mg TID PO Last administered on 01/30/17 16:17; Start 01/21/17 at 21:00; Stop 02/20/17 at 20:59 Home Med (Med Rec Complete!) ASDIRECTED XX ; Start 01/21/17 at 16:00; Stop 03/29 at 16:00; Status DC Hydroxyzine HCl (Atarax) 100 mg Q4HP PRN PO AGITATION; Start 01/25/17 at 13:00 ; Stop 02/24/17 at 12:59 Lamotrigine (LaMICtal) 50 mg QAM PO Last administered on 01/30/17 09:38; Start 01/22/17 at 09:00; Stop 02/21/17 at 08:59 Levetiracetam (Keppra) 1,000 mg BID PO Last administered on 01/25/17 08:06; Start 01/21/17 at 21:00; Stop 01/25/17 at 09:37; Status DC Levothyroxine Sodium (Synthroid) 50 mcg DAILY@06 PO Last administered on 06:10; Start 01/22/17 at 06:00; Stop 02/21/17 at 05:59 Lisinopril (Prinivil) 10 mg DAILY PO Last administered on 01/30/17 09:48; Start 01/22/17 at 09:00; Stop 02/21/17 at 08:59 Magnesium Hydroxide (Milk Of Magnesia) 30 ml DAILYPRN PRN PO CONSTIPATION; Start 01/21/17 at 17:15; Stop 02/20/17 at 17:14 Meloxicam (Mobic) 15 mg DAILY PO Last administered on 01/30/17 09:42; Start at 09:00; Stop 02/21/17 at 08:59 Metformin HCl (Glucophage) 500 mg BID@18 PO Last administered on 01/30/17 09:41; Start 01/21/17 at 18:00; Stop 02/20/17 at 17:59 Metoprolol Tartrate (Lopressor) 25 mg BID PO Last administered on 01/30/17 09: 49; Start 01/21/17 at 21:00; Stop 02/20/17 at 20:59 Nicotine (Nicoderm Cq 21mg) 1 patch DAILY TD Last administered on 01/27/17 07: 20; Start 01/21/17 at 09:00; Stop 02/20/17 at 08:59 Paliperidone (Invega) 3 mg QAM PO Last administered on 01/30/17 09:42; Start 01/26/17 at 09:00; Stop 02/25/17 at 08:59 Paliperidone (Invega) 3 mg QHS PO Last administered on 01/25/17 21:19; Start 01/23/17 at 21:00; Stop 02/22/17 at 20:59 Paliperidone (Invega) 6 mg DAILY PO Last administered on 01/25/17 08:04; Start 01/22/17 at 09:00; Stop 01/25/17 at 10:42; Status DC Paliperidone Palmitate (Invega Sustenna) 234 mg Q30D IM Last administered on 11:33; Start 01/25/17 at 09:00; Stop 02/24/17 at 08:59 Pantoprazole Sodium (Protonix) 40 mg DAILY PO Last administered on 01/30/17 09 :40; Start 01/22/17 at 09:00; Stop 02/21/17 at 08:59 Pravastatin Sodium (Pravachol) 40 mg QAM PO Last administered on 01/30/17 09: 41; Start 01/22/17 at 09:00; Stop 02/21/17 at 08:59 Quetiapine Fumarate (SEROquel) 100 mg BID@0900,1200 PO Last administered on 08:59; Start 01/24/17 at 09:00; Stop 01/24/17 at 12:04; Status DC Quetiapine Fumarate (SEROquel) 100 mg BID@0900,1600 PO Last administered on 17:20; Start 01/22/17 at 09:00; Stop 01/23/17 at 17:35; Status DC Quetiapine Fumarate (SEROquel) 150 mg BID PO Last administered on 01/30/17 09: 40; Start 01/25/17 at 21:00; Stop 02/23/17 at 15:59 Quetiapine Fumarate (SEROquel) 150 mg TID PO Last administered on 01/25/17 08: 04; Start 01/24/17 at 16:00; Stop 01/25/17 at 10:39; Status DC Quetiapine Fumarate (SEROquel) 300 mg QHS PO Last administered on 01/23/17 21: 19; Start 01/21/17 at 21:00; Stop 01/24/17 at 12:04; Status DC Salmeterol Xinafoate/ Fluticasone (Advair Hfa 230/ 21) 2 puff BID INH Last administered on 01/30/17 09:43; Start 01/22/17 at 09:00; Stop 02/21/17 at 08: 59 Sertraline HCl (Zoloft) 200 mg DAILY PO Last administered on 01/22/17 08:35; Start 01/22/17 at 09:00; Stop 01/22/17 at 10:16; Status DC Tiotropium [place] (Spiriva Handihaler) 1 inhalation DAILY@0800 INH Last administered on 01/30/17 09:40; Start 01/22/17 at 08:00; Stop 02/21/17 at 07: 59 Vitamin D (Vitamin D) 2,000 units DAILY PO Last administered on 01/30/17 09:37 ; Start 01/23/17 at 09:00; Stop 02/22/17 at 08:59 Zonisamide (Zonegran) 100 mg BID PO Last administered on 01/30/17 09:36; Start 01/25/17 at 09:00; Stop 02/24/17 at 08:59 Allergies Coded Allergies: Penicillins (Verified Allergy, Mild, 08/12/12) MATA MIGUEL MD Jan 30, 2017 17:53
[2017-01-30 18:29] VITALS: BP 96/58
[2017-01-31] MEDS: IPRATROPIUM 0.5MG/ALBUTEROL 2.5MG INH SOL UD 3ML (DUONEB)(J7620) NEB SCH ×4 (01:24→20:00)
[2017-01-31] MEDS: LEVOTHYROXINE 50MCG TABLET (0.05MG) PO SCH (06:00)
[2017-01-31 07:00] VITALS: BP 110/67
[2017-01-31] MEDS: QUEtiapine FUMARATE 50 MG TAB PO SCH ×2 (09:00→21:00)
[2017-01-31] MEDS ORDERED: PALIPERIDONE PALMITATE 156 MG/1ML INJ(INVEGA SUSTENNA)(J2426) IM ONE (10:00)
[2017-01-31] MEDS: TIOTROPIUM INHALER/CAPSULE (SPIRIVA) INH SCH (10:16)
[2017-01-31] MEDS: ADVAIR HFA 230/21MCG INHALER INH SCH ×2 (10:17→21:00)
[2017-01-31] MEDS: NICOTINE 21MG/24HR 1 EA TRANSDERMAL TD SCH (12:42)
[2017-01-31] MEDS: lamoTRIgine 25 MG TAB PO SCH (12:43)
[2017-01-31] MEDS: ZONISAMIDE 100 MG CAP (ZONEGRAN) PO SCH ×2 (12:43→21:00)
[2017-01-31] MEDS: GABAPENTIN 300 MG CAP PO SCH ×3 (12:44→21:00)
[2017-01-31] MEDS: VITAMIN D 1,000 INTERNATIONAL UNITS TABLET PO SCH (12:44)
[2017-01-31] MEDS: PRAVASTATIN 20 MG TAB PO SCH (12:44)
[2017-01-31] MEDS: metFORMIN (GLUCOPHAGE) 500 MG TAB PO SCH ×2 (12:44→17:32)
[2017-01-31] MEDS: MELOXICAM (MOBIC) 7.5 MG TAB PO SCH (12:45)
[2017-01-31] MEDS: METOPROLOL TART 25 MG TABLET PO SCH ×2 (12:45→21:00)
[2017-01-31] MEDS: ASPIRIN 81 MG ENTERIC TAB PO SCH (12:45)
[2017-01-31] MEDS: DULoxetine 20 MG CAP (CYMBALTA) PO SCH ×2 (12:45→21:00)
[2017-01-31] MEDS: PANTOPRAZOLE 40MG TAB (PROTONIX) PO SCH (12:45)
[2017-01-31] MEDS: LISINOPRIL 10 MG TAB PO SCH (12:46)
[2017-01-31] MEDS: carBAMazepine 100 MG *1/2* TAB PO SCH (12:47)
[2017-01-31] MEDS: ASCORBIC ACID 500 MG TAB PO SCH (12:49)
[2017-01-31] MEDS: FAMOTIDINE 20 MG TAB PO SCH ×2 (12:49→21:00)
[2017-01-31] MEDS: PALIPERIDONE 3 MG ER TAB (INVEGA) PO SCH ×2 (12:55→21:00)
--- NOTE | 2017-01-31 16:49 | MHIPNPDOC ---
[facility] Progress Note Progress Note DATE OF SERVICE: 01/31/17 HISTORY: Continues to express paranoid thoughts, feels the staff is telling other patients to avoid him because he's a bad person, patient states "I'm not a bad person, if you talk to me you'll see that." Taking some of his medications but continues to pick and choose which he wants to take without apparent pattern. Angry that staff and patients have been talking about him in the hallways and have access to his debit card information which "is true talk, I have my door open, I hear them". Patient references being unable to see a friend last night because staff told the friend he was with a social media marketing manager at the time, is convinced that staff are trying to isolate him. VITAL SIGNS: See below. NEW TEST RESULTS: as below CURRENT MEDICATIONS: See below. MENTAL STATUS EXAMINATION: Patient is a 56-year old male, who is dressed in [facility], poor grooming /hygiene; irritable, angrily stalking in hallway Speech: Is fluent; normal rate, angry tone, loud volume Thought processes including: illogical, paranoid Thought content: denies SI/HI; reports staff are isolating him and turning other patients against him Description of abnormal or psychotic thoughts: denies AVH, does not appear internally preoccupied; paranoia and delusions as described Judgment: poor Insight: poor Orientation: x3 Recent and remote memory: intact; questionable confabulation Attention span and concentration: intact Mood: "I'm mad, you would be too". Affect: angry; restricted range; congruent to mood and thought content DIAGNOSES: Schizoaffective Disorder Borderline Personality Disorder ASSESSMENT: Patient has begun improving slightly, taking his medications and eating again. He believes that the Invega shot "messed with" his mind and is refusing further injections. Although he is taking medications he has been observed picking and choosing which to take. There are elements of volitional changes in the patient's behavior, however he appears to still be experiencing a psychotic decompensation. Patient should continue to be encouraged to take medications and attend groups as possible, however he is quite distrustful of staff at this time. MANAGEMENT PLAN: continue to offer medications; encourage patient to attend groups; provide PRN reality orientation TIME SPENT: 15 minutes. Vital Signs Vital Signs Date Time Temp Pulse Resp B/P (MAP) Pulse Ox O2 Delivery O2 Flow Rate FiO2 01/31/17 12:46 110/67 01/31/17 12:45 100 01/31/17 07:00 98.8 18 01/30/17 18:29 93 Room Air Laboratory Data 24H Labs Laboratory Tests 2 01/30/17 17:16: Bedside Glucose (Misc Panel) 123H 01/31/17 05:07: Bedside Glucose (Misc Panel) 110H 01/31/17 16:21: Bedside Glucose (Misc Panel) 107H Current Medications Current Medications Acetaminophen (Tylenol Tab) 650 mg Q6HP PRN PO HEADACHE or DISCOMFORT; Start at 17:15; Stop 02/20/17 at 17:14 Albuterol Sulfate (Proventil Neb) 2.5 mg Q2HP PRN INH SOB/WHEEZING; Start 01/22 at 09:30; Stop 01/29/17 at 08:33; Status DC Albuterol Sulfate (Proventil Neb) 2.5 mg RQID INH Last administered on t 14:52; Start 01/22/17 at 12:00; Stop 01/29/17 at 08:33; Status DC Albuterol Sulfate (Proventil, Ventolin Hfa) 2 puff Q4HP PRN INH SHORTNESS OF BREATH; Start 01/29/17 at 08:45; Stop 02/28/17 at 08:44 Albuterol/ Ipratropium (Duoneb (Ipr 0.5mg/Alb 2.5mg)) 3 ml Q2HP PRN NEB SOB/ WHEEZING; Start 01/22/17 at 09:30; Stop 01/22/17 at 09:33; Status DC Albuterol/ Ipratropium (Duoneb (Ipr 0.5mg/Alb 2.5mg)) 3 ml Q2HP PRN NEB SOB/ WHEEZING; Start 01/30/17 at 11:45; Stop 03/01/17 at 11:44 Albuterol/ Ipratropium (Duoneb (Ipr 0.5mg/Alb 2.5mg)) 3 ml RQ6H NEB ; Start at 14:00; Stop 03/01/17 at 13:59 Albuterol/ Ipratropium (Duoneb (Ipr 0.5mg/Alb 2.5mg)) 3 ml RQID NEB ; Start 04/28 at 08:00; Stop 01/22/17 at 09:33; Status DC Ascorbic Acid (Vitamin C) 1,000 mg DAILY PO Last administered on 01/31/17 12: 49; Start 01/22/17 at 09:00; Stop 02/21/17 at 08:59 Aspirin (Ecotrin) 81 mg QAM PO Last administered on 01/31/17 12:45; Start 04/28 at 09:00; Stop 02/21/17 at 08:59 Carbamazepine (TEGretol) 300 mg DAILY PO Last administered on 01/31/17 12:47; Start 01/22/17 at 09:00; Stop 02/21/17 at 08:59 Duloxetine HCl (Cymbalta) 40 mg QHS PO Last administered on 01/25/17 21:19; Start 01/24/17 at 21:00; Stop 02/23/17 at 20:59 Duloxetine HCl (Cymbalta) 80 mg DAILY PO Last administered on 01/31/17 12:45; Start 01/22/17 at 09:00; Stop 02/21/17 at 08:59 Famotidine (Pepcid) 20 mg BID PO Last administered on 01/31/17 12:49; Start at 21:00; Stop 02/20/17 at 20:59 Gabapentin (Neurontin) 600 mg TID PO Last administered on 01/31/17 12:44; Start 01/21/17 at 21:00; Stop 02/20/17 at 20:59 Home Med (Med Rec Complete!) ASDIRECTED XX ; Start 01/21/17 at 16:00; Stop 03/29 at 16:00; Status DC Hydroxyzine HCl (Atarax) 100 mg Q4HP PRN PO AGITATION; Start 01/25/17 at 13:00 ; Stop 02/24/17 at 12:59 Lamotrigine (LaMICtal) 50 mg QAM PO Last administered on 01/31/17 12:43; Start 01/22/17 at 09:00; Stop 02/21/17 at 08:59 Levetiracetam (Keppra) 1,000 mg BID PO Last administered on 01/25/17 08:06; Start 01/21/17 at 21:00; Stop 01/25/17 at 09:37; Status DC Levothyroxine Sodium (Synthroid) 50 mcg DAILY@06 PO Last administered on 06:10; Start 01/22/17 at 06:00; Stop 02/21/17 at 05:59 Lisinopril (Prinivil) 10 mg DAILY PO Last administered on 01/31/17 12:46; Start 01/22/17 at 09:00; Stop 02/21/17 at 08:59 Magnesium Hydroxide (Milk Of Magnesia) 30 ml DAILYPRN PRN PO CONSTIPATION; Start 01/21/17 at 17:15; Stop 02/20/17 at 17:14 Meloxicam (Mobic) 15 mg DAILY PO Last administered on 01/31/17 12:45; Start at 09:00; Stop 02/21/17 at 08:59 Metformin HCl (Glucophage) 500 mg BID@ PO Last administered on 01/31/17 12:44; Start 01/21/17 at 18:00; Stop 02/20/17 at 17:59 Metoprolol Tartrate (Lopressor) 25 mg BID PO Last administered on 01/31/17 12: 45; Start 01/21/17 at 21:00; Stop 02/20/17 at 20:59 Nicotine (Nicoderm Cq 21mg) 1 patch DAILY TD Last administered on 01/31/17 12: 42; Start 01/21/17 at 09:00; Stop 02/20/17 at 08:59 Paliperidone (Invega) 3 mg QAM PO Last administered on 01/31/17 12:55; Start 01/26/17 at 09:00; Stop 02/25/17 at 08:59 Paliperidone (Invega) 3 mg QHS PO Last administered on 01/25/17 21:19; Start 01/23/17 at 21:00; Stop 02/22/17 at 20:59 Paliperidone (Invega) 6 mg DAILY PO Last administered on 01/25/17 08:04; Start 01/22/17 at 09:00; Stop 01/25/17 at 10:42; Status DC Paliperidone Palmitate (Invega Sustenna) 234 mg Q30D IM Last administered on 11:33; Start 01/25/17 at 09:00; Stop 02/24/17 at 08:59 Pantoprazole Sodium (Protonix) 40 mg DAILY PO Last administered on 01/31/17 12 :45; Start 01/22/17 at 09:00; Stop 02/21/17 at 08:59 Pravastatin Sodium (Pravachol) 40 mg QAM PO Last administered on 01/31/17 12: 44; Start 01/22/17 at 09:00; Stop 02/21/17 at 08:59 Quetiapine Fumarate (SEROquel) 100 mg BID@0900,1200 PO Last administered on 08:59; Start 01/24/17 at 09:00; Stop 01/24/17 at 12:04; Status DC Quetiapine Fumarate (SEROquel) 100 mg BID@0900,1600 PO Last administered on 17:20; Start 01/22/17 at 09:00; Stop 01/23/17 at 17:35; Status DC Quetiapine Fumarate (SEROquel) 150 mg BID PO Last administered on 01/30/17 09: 40; Start 01/25/17 at 21:00; Stop 02/23/17 at 15:59 Quetiapine Fumarate (SEROquel) 150 mg TID PO Last administered on 01/25/17 08: 04; Start 01/24/17 at 16:00; Stop 01/25/17 at 10:39; Status DC Quetiapine Fumarate (SEROquel) 300 mg QHS PO Last administered on 01/23/17 21: 19; Start 01/21/17 at 21:00; Stop 01/24/17 at 12:04; Status DC Salmeterol Xinafoate/ Fluticasone (Advair Hfa 230/ 21) 2 puff BID INH Last administered on 01/31/17 10:17; Start 01/22/17 at 09:00; Stop 02/21/17 at 08: 59 Sertraline HCl (Zoloft) 200 mg DAILY PO Last administered on 01/22/17 08:35; Start 01/22/17 at 09:00; Stop 01/22/17 at 10:16; Status DC Tiotropium [place] (Spiriva Handihaler) 1 inhalation DAILY@0800 INH Last administered on 01/31/17 10:16; Start 01/22/17 at 08:00; Stop 02/21/17 at 07: 59 Vitamin D (Vitamin D) 2,000 units DAILY PO Last administered on 01/31/17 12:44 ; Start 01/23/17 at 09:00; Stop 02/22/17 at 08:59 Zonisamide (Zonegran) 100 mg BID PO Last administered on 01/31/17 12:43; Start 01/25/17 at 09:00; Stop 02/24/17 at 08:59 Allergies Coded Allergies: Penicillins (Verified Allergy, Mild, 08/12/12) MATA MIGUEL MD Jan 31, 2017 16:49
[2017-01-31 18:00] VITALS: BP 103/60
[2017-02-01] MEDS: IPRATROPIUM 0.5MG/ALBUTEROL 2.5MG INH SOL UD 3ML (DUONEB)(J7620) NEB SCH ×4 (02:00→18:59)
[2017-02-01] MEDS: LEVOTHYROXINE 50MCG TABLET (0.05MG) PO SCH (06:00)
[2017-02-01] MEDS: TIOTROPIUM INHALER/CAPSULE (SPIRIVA) INH SCH (08:00)
[2017-02-01] MEDS: metFORMIN (GLUCOPHAGE) 500 MG TAB PO SCH ×2 (08:00→18:00)
[2017-02-01] MEDS: GABAPENTIN 300 MG CAP PO SCH ×3 (09:00→20:11)
[2017-02-01] MEDS: ASPIRIN 81 MG ENTERIC TAB PO SCH (09:00)
[2017-02-01] MEDS: DULoxetine 20 MG CAP (CYMBALTA) PO SCH ×2 (09:00→20:10)
[2017-02-01] MEDS: LISINOPRIL 10 MG TAB PO SCH (09:00)
[2017-02-01] MEDS: ASCORBIC ACID 500 MG TAB PO SCH (09:00)
[2017-02-01] MEDS: ADVAIR HFA 230/21MCG INHALER INH SCH ×2 (09:00→20:06)
[2017-02-01] MEDS: PALIPERIDONE 3 MG ER TAB (INVEGA) PO SCH ×2 (09:00→20:12)
[2017-02-01] MEDS: lamoTRIgine 25 MG TAB PO SCH (09:00)
[2017-02-01] MEDS: METOPROLOL TART 25 MG TABLET PO SCH ×2 (09:00→20:13)
[2017-02-01] MEDS: QUEtiapine FUMARATE 50 MG TAB PO SCH ×2 (09:00→20:13)
[2017-02-01] MEDS: ZONISAMIDE 100 MG CAP (ZONEGRAN) PO SCH ×2 (09:00→20:11)
[2017-02-01] MEDS: NICOTINE 21MG/24HR 1 EA TRANSDERMAL TD SCH (09:00)
[2017-02-01] MEDS: PANTOPRAZOLE 40MG TAB (PROTONIX) PO SCH (09:00)
[2017-02-01] MEDS: PRAVASTATIN 20 MG TAB PO SCH (09:00)
[2017-02-01] MEDS: MELOXICAM (MOBIC) 7.5 MG TAB PO SCH (09:00)
[2017-02-01] MEDS: VITAMIN D 1,000 INTERNATIONAL UNITS TABLET PO SCH (09:00)
[2017-02-01] MEDS: FAMOTIDINE 20 MG TAB PO SCH ×2 (09:00→20:11)
[2017-02-01] MEDS: carBAMazepine 100 MG *1/2* TAB PO SCH (09:00)
--- NOTE | 2017-02-01 17:22 | MHIPNPDOC ---
[facility] Progress Note Progress Note DATE OF SERVICE: 02/01/17 HISTORY: Remains irritable today, calmer at times. Gave a note to staff indicating that he wishes to go to court to find out why he is being held on the unit at this time. Continues to express belief that he is being poisoned/ his medicines are being substituted. Intermittently refusing medications or to eat. Stated that he would eat today and "if nothing bad happens then I'll start taking my medications and getting better". Later staff reported that patient was again refusing food. Patient consistent with desire to know why he is still hospitalized. VITAL SIGNS: See below. NEW TEST RESULTS: see below CURRENT MEDICATIONS: See below. MENTAL STATUS EXAMINATION: Patient is a 56-year old male, who is dressed in hospital pajamas, disheveled, irritable Speech: Is fluent; normal rate, tone, and volume Thought processes including: paranoid, perseverative Thought content: denies SI/HI; believes he is being poisoned or having his medicine substituted by staff Description of abnormal or psychotic thoughts: denies AVH; paranoia and delusions evident Judgment: poor Insight: poor Orientation: x3 Recent and remote memory: mildly impaired, having difficulty remembering events from previous days Attention span and concentration: intact Mood: "mad". Affect: hostile; constricted range; congruent to mood and thought content DIAGNOSES: Schizoaffective Disorder Borderline Personality Disorder ASSESSMENT: Patient remains decompensated, likely due to intermittent compliance with treatment. He was able to express that he was not doing well and would prefer a longer-term treatment option. Patient displays moments of insight making it possible that his irritability and paranoia are in some part feigned. However, the patient's inability to consistently comply with a treatment plan indicates that he would need a longer period of care. If patient continues to display ambivalence regarding his treatment then he will likely require treatment over objection. MANAGEMENT PLAN: continue to offer current medications; encourage patient to attend groups; arrange court date TIME SPENT: 15 minutes. Vital Signs Vital Signs Date Time Temp Pulse Resp B/P (MAP) Pulse Ox O2 Delivery O2 Flow Rate FiO2 01/31/17 18:00 98.0 101 16 103/60 (74) 01/30/17 18:29 93 Room Air Laboratory Data 24H Labs Laboratory Tests 2 02/01/17 06:14: Bedside Glucose (Misc Panel) 142H Current Medications Current Medications Acetaminophen (Tylenol Tab) 650 mg Q6HP PRN PO HEADACHE or DISCOMFORT; Start at 17:15; Stop 02/20/17 at 17:14 Albuterol Sulfate (Proventil Neb) 2.5 mg Q2HP PRN INH SOB/WHEEZING; Start 01/22 at 09:30; Stop 01/29/17 at 08:33; Status DC Albuterol Sulfate (Proventil Neb) 2.5 mg RQID INH Last administered on 14:52; Start 01/22/17 at 12:00; Stop 01/29/17 at 08:33; Status DC Albuterol Sulfate (Proventil, Ventolin Hfa) 2 puff Q4HP PRN INH SHORTNESS OF BREATH; Start 01/29/17 at 08:45; Stop 02/28/17 at 08:44 Albuterol/ Ipratropium (Duoneb (Ipr 0.5mg/Alb 2.5mg)) 3 ml Q2HP PRN NEB SOB/ WHEEZING; Start 01/22/17 at 09:30; Stop 01/22/17 at 09:33; Status DC Albuterol/ Ipratropium (Duoneb (Ipr 0.5mg/Alb 2.5mg)) 3 ml Q2HP PRN NEB SOB/ WHEEZING; Start 01/30/17 at 11:45; Stop 03/01/17 at 11:44 Albuterol/ Ipratropium (Duoneb (Ipr 0.5mg/Alb 2.5mg)) 3 ml RQ6H NEB ; Start at 14:00; Stop 03/01/17 at 13:59 Albuterol/ Ipratropium (Duoneb (Ipr 0.5mg/Alb 2.5mg)) 3 ml RQID NEB ; Start 04/28 at 08:00; Stop 01/22/17 at 09:33; Status DC Ascorbic Acid (Vitamin C) 1,000 mg DAILY PO Last administered on 01/31/17 12: 49; Start 01/22/17 at 09:00; Stop 02/21/17 at 08:59 Aspirin (Ecotrin) 81 mg QAM PO Last administered on 01/31/17 12:45; Start 04/28 at 09:00; Stop 02/21/17 at 08:59 Carbamazepine (TEGretol) 300 mg DAILY PO Last administered on 01/31/17 12:47; Start 01/22/17 at 09:00; Stop 02/21/17 at 08:59 Duloxetine HCl (Cymbalta) 40 mg QHS PO Last administered on 01/25/17 21:19; Start 01/24/17 at 21:00; Stop 02/23/17 at 20:59 Duloxetine HCl (Cymbalta) 80 mg DAILY PO Last administered on 01/31/17 12:45; Start 01/22/17 at 09:00; Stop 02/21/17 at 08:59 Famotidine (Pepcid) 20 mg BID PO Last administered on 01/31/17 12:49; Start at 21:00; Stop 02/20/17 at 20:59 Gabapentin (Neurontin) 600 mg TID PO Last administered on 01/31/17 12:44; Start 01/21/17 at 21:00; Stop 02/20/17 at 20:59 Home Med (Med Rec Complete!) ASDIRECTED XX ; Start 01/21/17 at 16:00; Stop 03/29 at 16:00; Status DC Hydroxyzine HCl (Atarax) 100 mg Q4HP PRN PO AGITATION; Start 01/25/17 at 13:00 ; Stop 02/24/17 at 12:59 Lamotrigine (LaMICtal) 50 mg QAM PO Last administered on 01/31/17 12:43; Start 01/22/17 at 09:00; Stop 02/21/17 at 08:59 Levetiracetam (Keppra) 1,000 mg BID PO Last administered on 01/25/17 08:06; Start 01/21/17 at 21:00; Stop 01/25/17 at 09:37; Status DC Levothyroxine Sodium (Synthroid) 50 mcg DAILY@06 PO Last administered on 06:10; Start 01/22/17 at 06:00; Stop 02/21/17 at 05:59 Lisinopril (Prinivil) 10 mg DAILY PO Last administered on 01/31/17 12:46; Start 01/22/17 at 09:00; Stop 02/21/17 at 08:59 Magnesium Hydroxide (Milk Of Magnesia) 30 ml DAILYPRN PRN PO CONSTIPATION; Start 01/21/17 at 17:15; Stop 02/20/17 at 17:14 Meloxicam (Mobic) 15 mg DAILY PO Last administered on 01/31/17 12:45; Start at 09:00; Stop 02/21/17 at 08:59 Metformin HCl (Glucophage) 500 mg BID@08,18 PO Last administered on 01/31/17 12:44; Start 01/21/17 at 18:00; Stop 02/20/17 at 17:59 Metoprolol Tartrate (Lopressor) 25 mg BID PO Last administered on 01/31/17 12: 45; Start 01/21/17 at 21:00; Stop 02/20/17 at 20:59 Nicotine (Nicoderm Cq 21mg) 1 patch DAILY TD Last administered on 01/31/17 12: 42; Start 01/21/17 at 09:00; Stop 02/20/17 at 08:59 Paliperidone (Invega) 3 mg QAM PO Last administered on 01/31/17 12:55; Start 01/26/17 at 09:00; Stop 02/25/17 at 08:59 Paliperidone (Invega) 3 mg QHS PO Last administered on 01/25/17 21:19; Start 01/23/17 at 21:00; Stop 02/22/17 at 20:59 Paliperidone (Invega) 6 mg DAILY PO Last administered on 01/25/17 08:04; Start 01/22/17 at 09:00; Stop 01/25/17 at 10:42; Status DC Paliperidone Palmitate (Invega Sustenna) 234 mg Q30D IM Last administered on 11:33; Start 01/25/17 at 09:00; Stop 02/24/17 at 08:59 Pantoprazole Sodium (Protonix) 40 mg DAILY PO Last administered on 01/31/17 12 :45; Start 01/22/17 at 09:00; Stop 02/21/17 at 08:59 Pravastatin Sodium (Pravachol) 40 mg QAM PO Last administered on 01/31/17 12: 44; Start 01/22/17 at 09:00; Stop 02/21/17 at 08:59 Quetiapine Fumarate (SEROquel) 100 mg BID@0900,1200 PO Last administered on 08:59; Start 01/24/17 at 09:00; Stop 01/24/17 at 12:04; Status DC Quetiapine Fumarate (SEROquel) 100 mg BID@0900,1600 PO Last administered on 17:20; Start 01/22/17 at 09:00; Stop 01/23/17 at 17:35; Status DC Quetiapine Fumarate (SEROquel) 150 mg BID PO Last administered on 01/30/17 09: 40; Start 01/25/17 at 21:00; Stop 02/23/17 at 15:59 Quetiapine Fumarate (SEROquel) 150 mg TID PO Last administered on 01/25/17 08: 04; Start 01/24/17 at 16:00; Stop 01/25/17 at 10:39; Status DC Quetiapine Fumarate (SEROquel) 300 mg QHS PO Last administered on 01/23/17 21: 19; Start 01/21/17 at 21:00; Stop 01/24/17 at 12:04; Status DC Salmeterol Xinafoate/ Fluticasone (Advair Hfa 230/ 21) 2 puff BID INH Last administered on 01/31/17 10:17; Start 01/22/17 at 09:00; Stop 02/21/17 at 08: 59 Sertraline HCl (Zoloft) 200 mg DAILY PO Last administered on 01/22/17 08:35; Start 01/22/17 at 09:00; Stop 01/22/17 at 10:16; Status DC Tiotropium Deport (Spiriva Handihaler) 1 inhalation DAILY@0800 INH Last administered on 01/31/17 10:16; Start 01/22/17 at 08:00; Stop 02/21/17 at 07: 59 Vitamin D (Vitamin D) 2,000 units DAILY PO Last administered on 01/31/17 12:44 ; Start 01/23/17 at 09:00; Stop 02/22/17 at 08:59 Zonisamide (Zonegran) 100 mg BID PO Last administered on 01/31/17t 12:43; Start 01/25/17 at 09:00; Stop 02/24/17 at 08:59 Allergies Coded Allergies: Penicillins (Verified Allergy, Mild, 08/12/12) MATA MIGUEL MD Feb 01, 2017 17:22
[2017-02-01 18:29] VITALS: BP 102/56
[2017-02-02] MEDS: IPRATROPIUM 0.5MG/ALBUTEROL 2.5MG INH SOL UD 3ML (DUONEB)(J7620) NEB SCH ×3 (02:00→13:15)
[2017-02-02] MEDS: LEVOTHYROXINE 50MCG TABLET (0.05MG) PO SCH (05:59)
[2017-02-02] MEDS: TIOTROPIUM INHALER/CAPSULE (SPIRIVA) INH SCH (06:25)
[2017-02-02 07:20] VITALS: BP 155/65
[2017-02-02] MEDS: QUEtiapine FUMARATE 50 MG TAB PO SCH ×2 (08:13→20:03)
[2017-02-02] MEDS: DULoxetine 20 MG CAP (CYMBALTA) PO SCH ×2 (08:17→20:01)
[2017-02-02] MEDS: PANTOPRAZOLE 40MG TAB (PROTONIX) PO SCH (08:18)
[2017-02-02] MEDS: VITAMIN D 1,000 INTERNATIONAL UNITS TABLET PO SCH (08:18)
[2017-02-02] MEDS: GABAPENTIN 300 MG CAP PO SCH ×3 (08:18→20:02)
[2017-02-02] MEDS: LISINOPRIL 10 MG TAB PO SCH (08:18)
[2017-02-02] MEDS: metFORMIN (GLUCOPHAGE) 500 MG TAB PO SCH ×2 (08:18→17:18)
[2017-02-02] MEDS: FAMOTIDINE 20 MG TAB PO SCH ×2 (08:18→20:01)
[2017-02-02] MEDS: PALIPERIDONE 3 MG ER TAB (INVEGA) PO SCH ×2 (08:18→20:01)
[2017-02-02] MEDS: lamoTRIgine 25 MG TAB PO SCH (08:18)
[2017-02-02] MEDS: MELOXICAM (MOBIC) 7.5 MG TAB PO SCH (08:18)
[2017-02-02] MEDS: ASPIRIN 81 MG ENTERIC TAB PO SCH (08:18)
[2017-02-02] MEDS: ZONISAMIDE 100 MG CAP (ZONEGRAN) PO SCH ×2 (08:19→20:00)
[2017-02-02] MEDS: ADVAIR HFA 230/21MCG INHALER INH SCH ×2 (08:19→20:00)
[2017-02-02] MEDS: METOPROLOL TART 25 MG TABLET PO SCH ×2 (08:19→20:01)
[2017-02-02] MEDS: PRAVASTATIN 20 MG TAB PO SCH (08:20)
[2017-02-02] MEDS: carBAMazepine 100 MG *1/2* TAB PO SCH (08:20)
[2017-02-02] MEDS: ASCORBIC ACID 500 MG TAB PO SCH (08:21)
[2017-02-02] MEDS: NICOTINE 21MG/24HR 1 EA TRANSDERMAL TD SCH ×2 (08:26→08:34)
--- NOTE | 2017-02-02 13:18 | IPN ---
DATE: 02/02/2017 John Paul Duran asked to see me numerous times, he came into my office. He wanted to tell me that he was feeling well, that he was eating and that his family has found him an apartment and he wanted to live near his brother and sister. He wants to have visits and hopes to be close to his family. He stated that he is a paranoid schizophrenic and takes things too personally. MENTAL STATUS EXAMINATION: Speech was loud. Thought process was slightly tangential. He had no loose associations. He did not describe any psychotic thoughts at this time, but has had a long history of paranoia and recent examples of paranoid thought and irritability on the unit. His judgment and insight are poor. He is fully oriented. Recent and remote memory intact. Attention and concentration are fair. No disturbance of language. He has a full fund of knowledge. Mood seems elevated. Affect is bright. DIAGNOSIS: Chronic schizophrenia.
[2017-02-02 18:23] VITALS: BP 110/67
[2017-02-02] MEDS ORDERED: MAALOX 30 ML SUSP *UDC PO PRN (22:15)
[2017-02-03] MEDS: LEVOTHYROXINE 50MCG TABLET (0.05MG) PO SCH (06:27)
[2017-02-03 06:30] VITALS: BP 98/66
[2017-02-03] MEDS: IPRATROPIUM 0.5MG/ALBUTEROL 2.5MG INH SOL UD 3ML (DUONEB)(J7620) NEB SCH ×3 (07:08→20:00)
[2017-02-03] MEDS: QUEtiapine FUMARATE 50 MG TAB PO SCH ×2 (08:17→21:00)
[2017-02-03] MEDS: DULoxetine 20 MG CAP (CYMBALTA) PO SCH ×2 (08:25→22:08)
[2017-02-03] MEDS: FAMOTIDINE 20 MG TAB PO SCH ×2 (08:26→22:09)
[2017-02-03] MEDS: PRAVASTATIN 20 MG TAB PO SCH (08:26)
[2017-02-03] MEDS: GABAPENTIN 300 MG CAP PO SCH ×3 (08:26→22:07)
[2017-02-03] MEDS: ASPIRIN 81 MG ENTERIC TAB PO SCH (08:26)
[2017-02-03] MEDS: PANTOPRAZOLE 40MG TAB (PROTONIX) PO SCH (08:26)
[2017-02-03] MEDS: MELOXICAM (MOBIC) 7.5 MG TAB PO SCH (08:27)
[2017-02-03] MEDS: ASCORBIC ACID 500 MG TAB PO SCH (08:27)
[2017-02-03] MEDS: ZONISAMIDE 100 MG CAP (ZONEGRAN) PO SCH ×2 (08:27→22:07)
[2017-02-03] MEDS: ADVAIR HFA 230/21MCG INHALER INH SCH ×2 (08:28→22:09)
[2017-02-03] MEDS: TIOTROPIUM INHALER/CAPSULE (SPIRIVA) INH SCH (08:28)
[2017-02-03] MEDS: metFORMIN (GLUCOPHAGE) 500 MG TAB PO SCH ×2 (08:28→17:14)
[2017-02-03] MEDS: lamoTRIgine 25 MG TAB PO SCH (08:28)
[2017-02-03] MEDS: carBAMazepine 100 MG *1/2* TAB PO SCH (08:29)
[2017-02-03] MEDS: VITAMIN D 1,000 INTERNATIONAL UNITS TABLET PO SCH (08:29)
[2017-02-03] MEDS: LISINOPRIL 10 MG TAB PO SCH (08:30)
[2017-02-03] MEDS: METOPROLOL TART 25 MG TABLET PO SCH ×2 (08:31→22:09)
[2017-02-03] MEDS: NICOTINE 21MG/24HR 1 EA TRANSDERMAL TD SCH (08:31)
[2017-02-03] MEDS: PALIPERIDONE 3 MG ER TAB (INVEGA) PO SCH ×2 (08:31→22:08)
[2017-02-03 18:45] VITALS: BP 127/67
[2017-02-04] MEDS: IPRATROPIUM 0.5MG/ALBUTEROL 2.5MG INH SOL UD 3ML (DUONEB)(J7620) NEB SCH (02:00)
[2017-02-04] MEDS: LEVOTHYROXINE 50MCG TABLET (0.05MG) PO SCH (05:47)
[2017-02-04 06:43] VITALS: BP 127/60
[2017-02-04] MEDS: PANTOPRAZOLE 40MG TAB (PROTONIX) PO SCH (07:48)
[2017-02-04] MEDS: ASCORBIC ACID 500 MG TAB PO SCH (07:49)
[2017-02-04] MEDS: ZONISAMIDE 100 MG CAP (ZONEGRAN) PO SCH (07:49)
[2017-02-04] MEDS: PALIPERIDONE 3 MG ER TAB (INVEGA) PO SCH (07:49)
[2017-02-04] MEDS: GABAPENTIN 300 MG CAP PO SCH (07:49)
[2017-02-04] MEDS: carBAMazepine 100 MG *1/2* TAB PO SCH (07:49)
[2017-02-04] MEDS: DULoxetine 20 MG CAP (CYMBALTA) PO SCH (07:49)
[2017-02-04 07:50] VITALS: BP 127/60
[2017-02-04] MEDS: PRAVASTATIN 20 MG TAB PO SCH (07:50)
[2017-02-04] MEDS: metFORMIN (GLUCOPHAGE) 500 MG TAB PO SCH (07:50)
[2017-02-04] MEDS: VITAMIN D 1,000 INTERNATIONAL UNITS TABLET PO SCH (07:50)
[2017-02-04] MEDS: ASPIRIN 81 MG ENTERIC TAB PO SCH (07:50)
[2017-02-04] MEDS: METOPROLOL TART 25 MG TABLET PO SCH (07:50)
[2017-02-04] MEDS: MELOXICAM (MOBIC) 7.5 MG TAB PO SCH (07:50)
[2017-02-04] MEDS: lamoTRIgine 25 MG TAB PO SCH (07:50)
[2017-02-04] MEDS: LISINOPRIL 10 MG TAB PO SCH (07:50)
[2017-02-04] MEDS: ADVAIR HFA 230/21MCG INHALER INH SCH (07:51)
[2017-02-04] MEDS: FAMOTIDINE 20 MG TAB PO SCH (07:51)
[2017-02-04] MEDS: QUEtiapine FUMARATE 50 MG TAB PO SCH (07:55)
[2017-02-04] MEDS: NICOTINE 21MG/24HR 1 EA TRANSDERMAL TD SCH (07:55)
[2017-02-04] MEDS: TIOTROPIUM INHALER/CAPSULE (SPIRIVA) INH SCH (07:56)
[2017-02-04] MEDS ORDERED: PALI1TAB2 PO ×2 (13:38)
[2017-02-04] MEDS ORDERED: CARB1TAB20 PO (13:38)
[2017-02-04] MEDS ORDERED: INVE234I IM (13:38)
[2017-02-04] MEDS ORDERED: CYMB1CAP4 PO ×2 (13:38)
[2017-02-04] MEDS ORDERED: ZONE1CAP PO (13:38)
[2017-02-04] MEDS ORDERED: LAMI25TA PO (13:38)
[2017-02-04] MEDS ORDERED: QUET5TAB PO (13:38)
--- NOTE | 2017-02-04 14:49 | MHDSPDOC ---
[facility] Discharge Summary Discharge Summary DATE OF ADMISSION: Jan 21, 2017 at 14:45 DATE OF DISCHARGE: Feb 04, 2017 at 14:20 DISCHARGE DIAGNOSES: 1. Schizoaffective disorder 2. Borderline Personality Disorder REASON FOR ADMISSION: HISTORY OF THE PRESENT ILLNESS: Patient is a 56-year-old male, who has a long history of psychiatric admissions. Patient presented himself to the ED yesterday after reportedly talking to his outpatient therapist about his desire to . Today he states that he no longer wants to live because of multiple medical problems that he feels continue to deteriorate, making his health far worse than it had been. He expresses that he "is very serious about this; I haven't felt so bad in a long time". Patient notes that he has chronic pain in his back, has had no appetite recently, and has been very paranoid feeling as though many people are trying to hurt him. He describes a long and complex medical history involving breaking his legs after jumping from a roof in a suicide attempt when younger as well as multiple attempts while imprisoned. He states that he has been at [facility] before and did not care for the providers he worked with at the time, however he is willing to come in because he feels he needs help. He states that he wanted a sitter because he felt unsafe, but also notes that he feels the sitter may be plotting to kill him. He continuously states "I just don't feel good" throughout the interview and brings up other medical issues such as leg weakness, emphysema, and diabetes mellitus. Patient also states that he was scheduled to have an MRI last Saturday to evaluate his back due to neuropathy but was unable to make his appointment secondary to leg weakness. He also notes having a seizure disorder for which he was prescribed Keppra approximately 6-7 months ago, patient feels his mood has worsened since then. Of note, a review of patient's previous admissions indicate that many of these complaints are similar in nature to previous admissions. There has been some question in the past if the patient is schizoaffective vs. depressed with psychotic features. On previous admissions patient had complained of weight loss , was convinced he had lung cancer, and had multiple other medical complaints at that time. He improved with Celexa and Seroquel. Today he states he has been non-compliant at times with his medications but is unable to provide a reason why. CONSULTANTS INVOLVED: Pain management TREATMENT AND PROGRESS ON THE UNIT : Initially, the patient was compliant with medications, until January 25. He stopped taking all his medications, he said these medications have been poisoned on by staff members. He stated that members had called the police on him, and this wasn't true. Nobody called the police, the police was never at the inpatient mental health unit. He also said he overheard staff members saying they're where going to beat him up at the parking lot, he said all the patients were talking about him and he was highly dissatisfied with this hospital. He implied he wanted to go to a bigger hospital where he could be hospitalized for a longer period of time. Patient is currently homeless, and he used to live with a friend before coming to the hospital. Apparently his friend couldn't tolerate his behavior anymore and asked him to leave the house. The patient used to receive treatment in [facility] at [facility] but apparently he has not been attending to his appointments and he has been out of medications for a long time. Patient was extremely paranoid and verbally aggressive staff and occasionally to peers while he was at the inpatient mental health unit. Last . January 31, he said he was going to take his medications because he wanted to be out of the inpatient mental health unit. He accepted his paliperidone injection of 156 mg after a long talk with him. Since that very same day he started taking his medications and he was told he was going to be transferred to [place], he had agreed to it and he signed the papers, but today, he demanded to be discharged, he thought he could go and live with his qa manager and qa manager's , that they will be very supportive, that he wanted to move to [place] eventually. When our social media marketing manager contacted the qa manager and his they said they had never told him to go and live with them. They refused to take him, but he insisted he wanted to go to [place]. Our social media marketing manager look for a residential in [place] where he could have gone but he was going to be missing his psychiatric and medical appointments, because he was not service-connected there. Therefore he agreed and going to [facility] and go to [facility] for his follow- up appointments. Patient was still paranoid but according to previous notes and according to staff members that know him, this is his baseline. Although the patient was paranoid, he never was physically aggressive or physically threatening to staff members or to peers. HOSPITAL COURSE: As above DISCHARGE ASSESSMENT: Patient was not suicidal, not homicidal, denies auditory and visual hallucinations. Patient has paranoid delusions, but was not physically threatening or physically abusive to anyone. MENTAL STATUS EXAMINATION ON DISCHARGE: MENTAL STATUS EXAMINATION: Patient is a 56-year old male, who is dressed in persona clothes, shaved, less disheveled, irritable Speech: Is fluent; normal rate, tone, and volume Thought processes including: He still has paranoid thoughts, but that is his baseline. Thought content: denies SI/HI; believes the phone is controlled by the staff, who are listening to his conversations Description of abnormal or psychotic thoughts: denies AVH; paranoia and delusions evident. Denies SI/HI. Patient has not been a threat to staff or other patients. Judgment: poor Insight: Mildly improved Orientation: x3 Recent and remote memory: mildly impaired, having difficulty remembering events from previous days Attention span and concentration: intact Mood: "angry because I have not been discharged yet". Affect: irritable, but he is able to calm down after a few minutes. MEDICATIONS ON DISCHARGE: Albuterol Sulfate (Proventil, Ventolin Hfa) 2 puff Q4HP PRN INH SHORTNESS OF BREATH Albuterol/ Ipratropium (Duoneb (Ipr 0.5mg/Alb 2.5mg)) 3 ml RQ6H NEB ; Ascorbic Acid (Vitamin C) 1,000 mg DAILY PO Aspirin (Ecotrin) 81 mg QAM PO for CAD (preventive) Carbamazepine (TEGretol) 300 mg DAILY PO for mood stabilization Duloxetine HCl (Cymbalta) 40 mg QHS PO for depression and anxiety Duloxetine HCl (Cymbalta) 80 mg DAILY PO for depression and anxiety Famotidine (Pepcid) 20 mg BID PO Gabapentin (Neurontin) 600 mg TID PO for pain and mood stabilization Hydroxyzine HCl (Atarax) 100 mg Q4HP for anxiety Lamotrigine (LaMICtal) 50 mg QAM PO for seizures and mood stabilization Levothyroxine Sodium (Synthroid) 50 mcg DAILY@06 PO for hypothyroidism Lisinopril (Prinivil) 10 mg DAILY PO for high blood pressure Meloxicam (Mobic) 15 mg DAILY PO for pain Metformin HCl (Glucophage) 500 mg BID for diabetes Metoprolol Tartrate (Lopressor) 25 mg BID PO for high blood pressure Paliperidone (Invega) 3 mg QAM PO for psychosis Paliperidone (Invega) 3 mg QHS PO for psychosis Paliperidone Palmitate (Invega Sustenna) 234 mg Q30D IM for psychosis. Next dose due on 02/24/17 Pantoprazole Sodium (Protonix) 40 mg DAILY PO Pravastatin Sodium (Pravachol) 40 mg QAM PO for high cholesterol Quetiapine Fumarate (SEROquel) 150 mg TID PO for mood stabilization Salmeterol Xinafoate/ Fluticasone (Advair Hfa 230/ 21) 2 puff BID INH for shortness of breath Tiotropium Agra (Spiriva Handihaler) 1 inhalation DAILY@0800 INH for shortness of breath Vitamin D (Vitamin D) 2,000 units DAILY PO Zonisamide (Zonegran) 100 mg BID PO for seizures PLAN/FOLLOWUP ARRANGEMENTS: * Mental Health Appt 1 * Mental Health [facility] * Established With This Provider Yes * Therapist Alexus * Date Feb 05, 2017 * Time 08:30 * * Additional information Once you get placed by [facility], please call Medicaid transportation [phone] to arrange transportation. Tell them you are a hospital discharge and this will explain why you don't have 48 hours notice. Follow Up Care Education Label * Medical * Medical Follow Up [facility] * Therapist ROBBIE MORGAN * Date Feb 06, 2017 * Time 10:30 * Address of Clinic or Practice [address] [place] [address] * Phone Number [phone] The amount of time spent in the coordination of care for this patient was approximately 40 minutes. Vital Signs/I&Os Vital Signs Date Time Temp Pulse Resp B/P (MAP) Pulse Ox O2 Delivery O2 Flow Rate FiO2 02/04/17 07:50 89 127/60 02/04/17 06:43 97.2 20 02/03/17 06:30 Room Air 01/30/17 18:29 93 Laboratory Data Labs 24H Laboratory Tests 2 02/03/17 17:12: Bedside Glucose (Misc Panel) 144H 9/25/17 05:50: Bedside Glucose (Misc Panel) 118H Microbiology Microbiology 01/30/17 Urine Culture - Final, Complete Medications Scheduled Ascorbic Acid (Vitamin C) 250 Mg Tab, 1,000 MG PO DAILY, (Reported) Aspirin (Aspirin EC) 81 Mg Tabec, 81 MG PO DAILY for Cardiac prevention, ( Reported) Carbamazepine (Carbamazepine) 200 Mg Tab, 300 MG PO DAILY for MOOD, #11 Duloxetine HCl (Cymbalta) 20 Mg Cap, 80 MG PO DAILY for MOOD, #28 Duloxetine HCl (Cymbalta) 20 Mg Cap, 40 MG PO QHS for MOOD, #14 Famotidine (Famotidine) 20 Mg Tab, 20 MG PO BID, (Reported) Fluticasone/Vilanterol (Breo Ellipta 200-25 Mcg/INH) 1 Inh Inh, 1 INH INH DAILY for , (Reported) Gabapentin (Gabapentin) 600 Mg Tab, 600 MG PO TID, (Reported) Lamotrigine (Lamictal) 25 Mg Tab, 50 MG PO QAM for EPILEPSY, #14 Levothyroxine Sodium (Synthroid) 50 Mcg Tab, 50 MCG PO DAILY for hypothyroid, ( Reported) Lisinopril (Prinivil) 10 Mg Tab, 10 MG PO DAILY for Hypertention, (Reported) Meloxicam (Meloxicam) 15 Mg Tab, 15 MG PO DAILY, (Reported) Metformin Hydrochloride (Metformin HCl) 500 Mg Tab, 500 MG PO BID, (Reported) Metoprolol Tartrate (Metoprolol Tartrate) 25 Mg Tab, 25 MG PO BID, (Reported) Paliperidone (Paliperidone ER) 3 Mg Tab, 3 MG PO QHS for PSYCHOSIS, #10 Paliperidone (Paliperidone ER) 3 Mg Tab, 3 MG PO QAM for PSYCHOSIS, #10 Paliperidone Palmitate (Invega Sustenna) 234 Mg/1.5 Ml Inj, 234 MG IM Q30D for PSYCHOSIS, #1 Pantoprazole Sodium Sesquihydr (Protonix) 40 Mg Tab, 40 MG PO DAILY for GERD, ( Reported) Pravastatin Sodium (Pravachol) 40 Mg Tab, 40 MG PO DAILY for hyperlipidemia, ( Reported) Quetiapine Fumerate (Quetiapine Fumarate) 50 Mg Tab, 150 MG PO BID for MOOD/ PSYCHOSIS, #42 Sertraline HCl (Sertraline HCl) 100 Mg Tab, 200 MG PO DAILY, (Reported) Tiotropium Agra Monohydrate (Spiriva Handihaler) 5 Inhalation/Inhaler Powd, 1 INHALATION INH DAILY for , (Reported) Zonisamide (Zonegran) 100 Mg Cap, 100 MG PO BID for EPILEPSY, #14 Scheduled PRN Albuterol Sulfate (Proair Hfa) 108 Mcg/Act Aer, 108 MCG IN Q4HP PRN for SHORTNESS OF BREATH, (Reported) Allergies Coded Allergies: Penicillins (Verified Allergy, Mild, 08/12/12) KISHA MANCILLA MD Feb 04, 2017 14:49
== END 2017-02-04 14:20 | disposition home or self-care (01) | DRG 750 ==
LOC: M ED 10:15 → M ED INP 14:45 → M PSY 15:36
PROVIDERS: ADMIT Psychiatry & Neurology Psychiatry; ATTEND Psychiatry & Neurology Psychiatry
DX: F25.9 Schizoaffective disorder, unspecified (principal); E11.40 Type 2 diabetes mellitus with diabetic neuropathy, unspecified; J44.9 Chronic obstructive pulmonary disease, unspecified; G40.909 Epilepsy, unspecified, not intractable, without status epilepticus; E55.9 Vitamin D deficiency, unspecified; F60.3 Borderline personality disorder; Z79.899 Other long term (current) drug therapy; Z79.82 Long term (current) use of aspirin; Z88.0 Allergy status to penicillin; I10 Essential (primary) hypertension; M54.5 Low back pain; G89.29 Other chronic pain; E03.9 Hypothyroidism, unspecified; E78.5 Hyperlipidemia, unspecified; F17.200 Nicotine dependence, unspecified, uncomplicated; R26.89 Other abnormalities of gait and mobility

== ENCOUNTER → 2017-02-19 | Outpatient (CLI) | payer MEDICARE ==
[~2017-02-19] MED LIST changes: +ASCO25TA PO; +CARB1TAB20 PO; +CYMB1CAP4 PO; +FAMO1TAB11 PO; +GABA-283 PO; +GABA600T PO; +INVE234I IM; +KEPP10002 PO; +LAMI25TA PO; +MELO15TA4 PO; +METF500T13 PO; +METO25TA4 PO; +PALI1TAB2 PO; +QUET1TAB10 PO; +QUET1TAB8 PO; +SERT-138 PO; +SERT-155 PO; +ZONE1CAP PO
--- NOTE | 2017-02-19 15:30 | REP ---
MR THORACIC SPINE WITHOUT CONTRAST: HISTORY: Back pain. A small central disc protrusion is present at the T7-8 level. There is minimal effacement of the thecal sac without spinal cord compression. The T7 neural foramina are patent. There is no other disc bulge or herniation. The remaining neural foramina are patent. The spinal cord is normal in signal intensity. Increased signal intensity on T2-weighted images is present in the superior endplate of the T11 vertebral body. This represents degenerative change. Normal signal intensity is present in the remaining thoracic vertebral bodies. IMPRESSION: Small disc protrusion at the T7-8 level without spinal cord compression. Signed by oRn Huston MD 02/19/2017 03:40 P
== END ==
LOC: M RAD 09:56
PROVIDERS: ATTEND Family Medicine
DX: M54.2 Cervicalgia (principal)

== ENCOUNTER → 2017-02-21 | Outpatient (CLI) | payer MEDICARE ==
--- NOTE | 2017-02-22 08:46 | REP ---
MR LUMBAR SPINE WITHOUT CONTRAST: HISTORY: Dorsalgia. A diffuse disc bulge is present at the L1-2 level. There is minimal compression of the thecal sac. The L1 nerves exit the neural foramina without compression. A diffuse disc bulge is present at the L2-3 level. There is minimal compression of the thecal sac. There is hypertrophy of the posterior articulating facets. The L2 nerves exit the neural foramina without compression. A diffuse disc bulge is present at the L3-4 level. There is minimal compression of the thecal sac. There is hypertrophy of the posterior articulating facets. The L3 nerves exit the neural foramina without compression. A diffuse disc bulge and small central disc protrusion are present at the L4-5 level. There is hypertrophy of the ligamenta flava and posterior articulating facets. These findings produce minimal central canal stenosis. The L4 nerves exit the neural foramina without compression. There is no disc bulge or herniation at the L5-S1 level. There is hypertrophy of the posterior articulating facets. The L5 nerves exit the neural foramina without compression. The conus medullaris is normal in appearance terminating at the level of the T12-L1 intervertebral disc . Normal signal intensity is present in the lumbar intervertebral discs and vertebral bodies. IMPRESSION: 1. Diffuse disc bulges at the L1-2 through L3-4 levels with minimal thecal sac compression. 2. Minimal central canal stenosis at the L4-5 level secondary to disc bulge, disc protrusion, ligamentous and facet hypertrophy. Signed by Ron Huston MD 02/22/2017 08:53 A
== END ==
LOC: M RAD 16:57
PROVIDERS: ATTEND Family Medicine
DX: M54.9 Dorsalgia, unspecified (principal); M51.26 Other intervertebral disc displacement, lumbar region; M48.061 Spinal stenosis, lumbar region without neurogenic claudication

== ENCOUNTER 2017-07-02 23:05 | Inpatient (IN) | payer MEDICARE ==
[2017-07-03] MEDS ORDERED: MAALOX 30 ML SUSP *UDC PO (00:15)
[2017-07-03] MEDS ORDERED: OLANZapine 5 MG TAB PO (00:15)
[2017-07-03] MEDS ORDERED: MOM 30ML SUSPENSION UDC PO (00:15)
[2017-07-03] MEDS ORDERED: ACETAMINOPHEN TAB 650MG DOSE (2X325MG) PO (00:15)
[2017-07-03] MEDS: ADVAIR HFA 115/21MCG INHALER INH ×3 (09:00→21:00)
[2017-07-03] MEDS: PALIPERIDONE 6 MG ER TAB (INVEGA) PO ×2 (09:00→12:21)
[2017-07-03] MEDS: DIVALPROEX 500 MG TAB PO ×3 (09:00→22:00)
[2017-07-03] MEDS: FAMOTIDINE 20 MG TAB PO ×2 (09:00→21:56)
[2017-07-03] MEDS ORDERED: ALBUTEROL 90 MCG/ACT 8GM HFA INHALER INH (10:00)
[2017-07-03] MEDS: LISINOPRIL 10 MG TAB PO (10:47)
[2017-07-03] MEDS: metFORMIN (GLUCOPHAGE) 500 MG TAB PO ×2 (10:47→22:02)
[2017-07-03] MEDS: METOPROLOL TART 25 MG TABLET PO ×2 (10:47→22:00)
[2017-07-03] MEDS: levETIRAcetam 250MG TABLET (KEPPRA) PO ×2 (10:47→21:58)
[2017-07-03] MEDS: MELOXICAM (MOBIC) 7.5 MG TAB PO (10:48)
[2017-07-03] MEDS: carBAMazepine 200 MG TAB PO (10:48)
[2017-07-03] MEDS: GABAPENTIN 300 MG CAP PO ×3 (10:48→21:59)
[2017-07-03] MEDS: ASPIRIN 81 MG ENTERIC TAB PO (10:48)
[2017-07-03] MEDS: PANTOPRAZOLE 40MG TAB (PROTONIX) PO (10:48)
[2017-07-03] MEDS: LEVOTHYROXINE 50MCG TABLET (0.05MG) PO (10:49)
[2017-07-03] MEDS: PRAVASTATIN 20 MG TAB PO (11:00)
[2017-07-03 21:58] LABS: BEDSIDE GLUCOSE 114 MG/DL (70-105)
[2017-07-04] MEDS: LEVOTHYROXINE 50MCG TABLET (0.05MG) PO (06:10)
[2017-07-04 06:24] LABS: BEDSIDE GLUCOSE 127 MG/DL (70-105)
[2017-07-04 07:20] LABS: HEMATOCRIT 36.7 % (42.0-52.0); HEMOGLOBIN 12.3 g/dl (14.0-18.0); MEAN CORPUSCULAR HEMOGLOBIN 31.7 pg (27.0-33.0); MEAN CORPUSCULAR HGB CONC 33.5 g/dl (32.0-36.5); MEAN CORPUSCULAR VOLUME 94.6 fl (80.0-96.0); PLATELET COUNT, AUTOMATED 165 10^3/uL (150-450); RED BLOOD COUNT 3.88 10^6/uL (4.30-6.10); RED CELL DISTRIBUTION WIDTH 14.2 % (11.5-14.5); WHITE BLOOD COUNT 6.6 10^3/uL (4.0-10.0)
[2017-07-04 07:38] LABS: CARBAMAZEPINE (TEGRETOL) LEVEL < 0.5 UG/ML (4.0-10.0)
[2017-07-04 07:58] LABS: ALBUMIN 3.5 GM/DL (3.2-5.2); ALBUMIN/GLOBULIN RATIO 1.17 (1.00-1.93); ALKALINE PHOSPHATASE 72 U/L (45-117); ALT/SGPT 19 U/L (12-78); ANION GAP 8 MEQ/L (8-16); AST/SGOT 13 U/L (7-37); BILIRUBIN,TOTAL 0.5 MG/DL (0.2-1.0); BLOOD UREA NITROGEN 18 MG/DL (7-18); CALCIUM LEVEL 8.8 MG/DL (8.5-10.1); CARBON DIOXIDE LEVEL 27 MEQ/L (21-32); CHLORIDE LEVEL 107 MEQ/L (98-107); CREATININE FOR GFR 0.85 MG/DL (0.70-1.30); GLOMERULAR FILTRATION RATE > 60.0 (>56); GLUCOSE, FASTING 122 MG/DL (70-100); POTASSIUM SERUM 4.2 MEQ/L (3.5-5.1); SODIUM LEVEL 142 MEQ/L (136-145); TOTAL PROTEIN 6.5 GM/DL (6.4-8.2)
[2017-07-04 08:32] LABS: MAGNESIUM LEVEL 2.2 MG/DL (1.8-2.4)
[2017-07-04] MEDS: PALIPERIDONE 6 MG ER TAB (INVEGA) PO (12:23)
[2017-07-04] MEDS: GABAPENTIN 300 MG CAP PO ×2 (12:23→15:02)
[2017-07-04] MEDS: metFORMIN (GLUCOPHAGE) 500 MG TAB PO ×2 (12:23→15:47)
[2017-07-04] MEDS: FAMOTIDINE 20 MG TAB PO (12:23)
[2017-07-04] MEDS: PRAVASTATIN 20 MG TAB PO (12:23)
[2017-07-04] MEDS: ASPIRIN 81 MG ENTERIC TAB PO (12:23)
[2017-07-04] MEDS: PANTOPRAZOLE 40MG TAB (PROTONIX) PO (12:23)
[2017-07-04] MEDS: carBAMazepine 200 MG TAB PO (12:24)
[2017-07-04] MEDS: levETIRAcetam 250MG TABLET (KEPPRA) PO (12:24)
[2017-07-04] MEDS: METOPROLOL TART 25 MG TABLET PO (12:24)
[2017-07-04] MEDS: LISINOPRIL 10 MG TAB PO (12:24)
[2017-07-04] MEDS: DIVALPROEX 500 MG TAB PO (12:24)
[2017-07-04] MEDS: MELOXICAM (MOBIC) 7.5 MG TAB PO (12:24)
[2017-07-04] MEDS: ADVAIR HFA 115/21MCG INHALER INH (12:24)
== END 2017-07-04 15:40 | disposition home or self-care (01) | DRG 885 ==
LOC: M ED 23:05 → M ED INP 07-03 00:03 → M PSY 07-03 00:30
PROVIDERS: Psychiatry & Neurology Psychiatry
DX: F25.9 Schizoaffective disorder, unspecified (principal); F60.3 Borderline personality disorder; Z79.82 Long term (current) use of aspirin; Z79.899 Other long term (current) drug therapy; Z88.0 Allergy status to penicillin; F41.9 Anxiety disorder, unspecified; E55.9 Vitamin D deficiency, unspecified; G89.29 Other chronic pain; M54.5 Low back pain; E78.5 Hyperlipidemia, unspecified; G62.9 Polyneuropathy, unspecified; E03.9 Hypothyroidism, unspecified; G40.909 Epilepsy, unspecified, not intractable, without status epilepticus; K21.9 Gastro-esophageal reflux disease without esophagitis; E11.9 Type 2 diabetes mellitus without complications; F17.200 Nicotine dependence, unspecified, uncomplicated; J44.9 Chronic obstructive pulmonary disease, unspecified; I10 Essential (primary) hypertension; E83.42 Hypomagnesemia; R26.89 Other abnormalities of gait and mobility

== ENCOUNTER 2017-07-08 11:46 | Emergency (ER) | payer MEDICARE | END 2017-07-08 12:44 | disposition home or self-care (01) | LOC: M ED 11:46 | DX: Z04.6 Encounter for general psychiatric examination, requested by authority (principal); F25.9 Schizoaffective disorder, unspecified; I10 Essential (primary) hypertension; E78.00 Pure hypercholesterolemia, unspecified; E11.9 Type 2 diabetes mellitus without complications; E03.9 Hypothyroidism, unspecified; G60.0 Hereditary motor and sensory neuropathy; F33.9 Major depressive disorder, recurrent, unspecified; F41.9 Anxiety disorder, unspecified; K21.9 Gastro-esophageal reflux disease without esophagitis; F17.210 Nicotine dependence, cigarettes, uncomplicated; F19.11 Other psychoactive substance abuse, in remission; Z79.51 Long term (current) use of inhaled steroids; Z79.890 Hormone replacement therapy; Z79.82 Long term (current) use of aspirin; Z79.899 Other long term (current) drug therapy; Z79.84 Long term (current) use of oral hypoglycemic drugs; Z88.0 Allergy status to penicillin; Z87.09 Personal history of other diseases of the respiratory system | CPT/HCPCS: 99283 ==